=== PATIENT | female | born 1980 | race Caucasian/White ===

== ENCOUNTER 2019-08-27 16:11 | Emergency (ER) | payer OTHER ==
--- OUTSIDE RECORDS SUMMARY | 2019-08-27 16:34 | XMS REPORT | Continuity of Care Document ---
:1980 External Reference #:[id number] Author Name Zoie Karchantellmanohar (transmitted by agent of provider Maribel Jeff) Address [address] [place] [id number] Problems Active Problems Provider Date Malignant neoplasm of uterus Lawrence Johnson MD Onset: 06/15/2019 Note: April 2019 Malignant tumor of cervix Onset: 05/19/2019 Inactive Problems Human papilloma virus infection Onset: 04/28/2019 Inactive: 04/28/2019 Lump of cervix Onset: 04/28/2019 Inactive: 04/28/2019 Burn of hand Onset: 04/28/2019 Inactive: 04/28/2019 Generalized abdominal pain Onset: 04/14/2019 Inactive: 04/14/2019 Abdominal pain Onset: 04/14/2019 Inactive: 04/14/2019 Acute sinusitis Onset: 03/22/2019 Inactive: 03/22/2019 Social History Type Date Description Comments Sex Unknown Allergies, Adverse Reactions, Alerts Active Allergies Reaction Severity Comments Date Augmentin Clavulanate part 06/16/2019 Hormonal Contraception extreme depression 06/16/2019 Medications History Medications SIG Qnty Indications Ordering Date Provider Sulfamethoxazole/Tri take 1 by mouth 14tabs Rhona Whitehead 07/07/2019 - methoprim DS twice daily for 7 MD 06/25/2019 days or as 800-160mg Tablets directed by physician History Medications Nitrofurantoin Monohyd 1 tab by mouth 10caps R35.0 JODEE White 2018 - Macro 2 times daily 06/25/2019 100mg Capsules Zithromax Oral; Take 2 6tabs Unknown 03/22/2019 - 250mg Tablets tablets now 03/27/2019 then take 1 tablet daily for four more days. Take one hour before or two hours after a meal Immunizations CPT Code Status Date Vaccine Lot # [id number] Given 07/20/2019 Flu < 65 years [id number] Given 07/21/2013 Tdap - Boostrix/Adacel 95725 Given 04/21/2000 Hep A Adult for >18 yrs Havrix/Vaqta 91835 Given 10/14/1999 Hep A Adult for >18 yrs Havrix/Vaqta 32304 Given 09/28/1995 Hep B 11-15yr, Recombivax 1.0ml dose only 02067 Given 03/01/1995 Hep B 11-15yr, Recombivax 1.0ml dose only 01166 Given 01/09/1995 Varicella (Chicken Pox) Vaccine 02232 Given 08/24/1994 Hep B 11-15yr, Recombivax 1.0ml dose only 94693 Given 07/19/1989 Polio - Ipol 88222 Given 07/19/1989 MMR Vaccine 11666 Given 08/08/1985 Hib ActiHib/Hiberix 38495 Given 10/02/1983 MMR Vaccine Vital Signs Date Vital Result Comment 07/24/2019 3:08pm BP Systolic 118 mmHg BP Diastolic 68 mmHg Weight 120.00 lb Heart Rate 76 /min Body Temperature 98.2 F O2 % BldC Oximetry 99 % 07/06/2019 2:10pm BP Systolic 100 mmHg BP Diastolic 64 mmHg Weight 120.00 lb Heart Rate 76 /min Body Temperature 97.9 F O2 % BldC Oximetry 96 % Results Test Acquired Date Facility Test Result H/L Range Note CMP 08/21/2019 N2N/CCD Import Albumin QN Serum/Plasma 4.6 Alt - SGPT 36 Calcium Ser/Plasma Mass/Vol 9.7 Carbon Dioxide QN Ser/Plas 26 Chloride Serum/Plasma 98 Creatinine QN Serum MCNC 0.72 Glucose Serum 90 Alkaline Phosphatase QN Ser/PL 44 Potassium QN Ser/PL Mols/Vol 4.3 Protein Total QN Ser/Plas 6.9 Sodium QN Ser/Plasma 136 Ast - Sgot 26 CBC W/Auto Differential 08/18/2019 N2N/CCD Import White Blood Count Ser 2.8 Auto CNT RBC Red Blood Count-Auto 4.1 Hemoglobin Blood 11.4 Hematocrit 36 35-45 MCV (Corpuscular Volume) 87 MCH (Corpuscular Hemoglobin) 28 MCHC (Corpuscular Hemog Conc) 32 RDW 13.7 Platelet Count Blood Auto CNT 176 Fluid Lymphocytes 16.3 Monocytes 7.6 Basophils % 4.3 Absolute Eosinophils 0.1 Absolute Lymphocytes Blood 0.5 Absolute Monocytes 0.2 Absolute Neutrophils Auto CNT 2.0 CBC W/Auto Differential 08/14/2019 N2N/CCD Import Platelet Count Blood 215 Auto CNT Neutrophils 2.2 Fluid Lymphocytes 1.1 Monocytes 0.3 Fluid Body Eosinophils Manual 0.2 Basophils % 0.[address] Basophils BLD Auto CT 0.0 CBC W/Auto Differential 08/14/2019 N2N/CCD Import White Blood Count Ser 3.8 Auto CNT RBC Red Blood Count-Auto 4.3 Hemoglobin Blood 11.9 Hematocrit 37 35-45 MCV (Corpuscular Volume) 87 MCH (Corpuscular Hemoglobin) 28 MCHC (Corpuscular Hemog Conc) 32 RDW 13.9 Platelet Count Blood Auto CNT 215 Urine Culture And 07/24/2019 [facility] Urine Culture SEE RESULT 1, [address] [place] [address] [phone] Urine Culture And 07/06/2019 [facility] Urine Culture SEE RESULT [address] [place] [address] [phone] CFM Urinalysis 07/06/2019 [facility] Urine Specific 1.020 ( )- - [place] Ua PH Test Strip 7.0 Ua Color <pending> Ua Appearance <pending> Ua WBC large Ua Protein 100 Urine Glucose QL negative Urine Ketones QL Test Strip negative Urine Bilirubin TTL QL T-Strip negative Urine Urobilinogen QN TS 0.2 Urine Nitrite QL TS positive Ua Occult Blood moderate Abo/RH 05/30/2019 N2N/CCD Import Abo/RH A RH Pos Antibody 05/30/2019 N2N/CCD Import Antibody negative Screen Screen Hematocrit 05/12/2019 N2N/CCD Import Hematocrit 39 % 35 - 42 % Hemoglobin 05/12/2019 N2N/CCD Import Hemoglobin 12.5 gm/dl INR 05/12/2019 N2N/CCD Import INR 1.0 _ - Lymph# 05/12/2019 N2N/CCD Import Lymph# 1.3 K/cumm 1.0 - 4.9 K/cumm Lymph% 05/12/2019 N2N/CCD Import Lymph% 1.3 % Low 20 - 45 % MCH 05/12/2019 N2N/CCD Import MCH 30 uugm 27 - 31 uugm MCHC 05/12/2019 N2N/CCD Import MCHC 32 gm/dL 32 - 36 gm/dL MCV 05/12/2019 N2N/CCD Import MCV 92 fL 81 - 99 fL Mcintosh# 05/12/2019 N2N/CCD Import Mcintosh# 0.4 10-9/L 0 - 1.1 10-9/L Mcintosh% 05/12/2019 N2N/CCD Import Mcintosh% 0.4 % 0 - 10 % Neut% 05/12/2019 N2N/CCD Import Neut% 3.9 % Low 45 - 70 % Platelets 05/12/2019 N2N/CCD Import Platelets 263 K/cumm 140 - 440 K/cumm PT 05/12/2019 N2N/CCD Import PT 11.4 seconds 10.7 - 12.0 Seconds PTT 05/12/2019 N2N/CCD Import PTT 31.9 _ RBC 05/12/2019 N2N/CCD Import RBC 4.2 M/cumm 4.2 - 5.4 M/cumm RDW 05/12/2019 N2N/CCD Import RDW 13 % 11.5 - 14.5 % WBC 05/12/2019 N2N/CCD Import WBC 5.9 K/cumm 4.8 - 10.8 K/cumm Albumin 05/12/2019 N2N/CCD Import Albumin 4.6 gm/dL Alk Phos 05/12/2019 N2N/CCD Import Alk Phos 39 IU/L Alt 05/12/2019 N2N/CCD Import Alt 44 IU/L Anion Gap 05/12/2019 N2N/CCD Import Anion Gap 11 _ Ast 05/12/2019 N2N/CCD Import Ast 29 IU/L Bilirubin 05/12/2019 N2N/CCD Import Bilirubin 0.2 mg/dL 0.2 - 1.3 Total Total mg/dL BUN 05/12/2019 N2N/CCD Import BUN 13 _ Calcium 05/12/2019 N2N/CCD Import Calcium 9.5 mg/dL Chloride 05/12/2019 N2N/CCD Import Chloride 106 mmol/L 98 - 107 mmol/L Co2 05/12/2019 N2N/CCD Import Co2 25 mmol/L 22 - 31 mmol/L Creatinine 05/12/2019 N2N/CCD Import Creatinine 0.80 mg/dL Eosin% 05/12/2019 N2N/CCD Import Eosin% 0.3 % 0 - 5 % Eosin# 05/12/2019 N2N/CCD Import Eosin# 0.3 K/cumm 0 - .5 K/cumm Baso% 05/12/2019 N2N/CCD Import Baso% 0.0 % 0 - 2 % Baso# 05/12/2019 N2N/CCD Import Baso# 0.0 K/cumm 0 - 0.2 K/cumm Sodium 05/12/2019 N2N/CCD Import Sodium 142 mmol/L 137 - 145 mmol/L GFR Afr Amer 05/12/2019 N2N/CCD Import GFR Afr Amer 109 _ 60 - 150 GFR Non Afr 05/12/2019 N2N/CCD Import GFR Non Afr 95 _ 60 - 150 Amer Amer Glucose 05/12/2019 N2N/CCD Import Glucose 86 mg/dL 60 - 100 MG/DL Protein, Total 05/12/2019 N2N/CCD Import Protein, Total 7.0 gm/dL Potassium 05/12/2019 N2N/CCD Import Potassium 4.9 mmol/L Laboratory 05/04/2019 [facility] Surgical SEE RESULT 4 test finding [address] Pathology [place] [id number] [phone] Protein-Ua 04/14/2019 N2N/CCD Import Protein-Ua Negative Negative Protein, Total 04/14/2019 N2N/CCD Import Protein, Total 6.8 g/dL 6.4- 8.9 g/dL Potassium 04/14/2019 N2N/CCD Import Potassium 3.9 mmol/L 3.5-5.0 mmol/L Platelets 04/14/2019 N2N/CCD Import Platelets 252 10_3/uL 150-450 10 3/uL PH-Ua 04/14/2019 N2N/CCD Import PH-Ua 6.0 _ 5-9 NRBC% 04/14/2019 N2N/CCD Import NRBC% 0.0 _ NRBC# 04/14/2019 N2N/CCD Import NRBC# 0.0 10_3/ul Nitrite-Ua 04/14/2019 N2N/CCD Import Nitrite-Ua Negative Negative Neut% 04/14/2019 N2N/CCD Import Neut% 60.2 % 45 - 70 % Neut# 04/14/2019 N2N/CCD Import Neut# 4.0 10_3/ul 1.5-7.7 10 3/ul MPV 04/14/2019 N2N/CCD Import MPV 7.5 fL 7.4-10.4 fL Mcintosh% 04/14/2019 N2N/CCD Import Mcintosh% 5.1 % 0 - 10 % Mcintosh# 04/14/2019 N2N/CCD Import Mcintosh# 0.3 10_3/ul 0-0.8 10 3/ul MCV 04/14/2019 N2N/CCD Import MCV 89 fL 80-97 fL MCHC 04/14/2019 N2N/CCD Import MCHC 33 g/dL 31-36 g/dL MCH 04/14/2019 N2N/CCD Import MCH 29 pg 27-31 pg RBC 04/14/2019 N2N/CCD Import RBC 4.23 3.70-4.87 10 10_6_/uL 6 /uL RDW 04/14/2019 N2N/CCD Import RDW 13 % 10-15 % Sodium 04/14/2019 N2N/CCD Import Sodium 139 mmol/L 135-145 mmol/L SP Grav-Ua 04/14/2019 N2N/CCD Import SP Grav-Ua 1.029 _ 1.010-1.030 Urobilinogen-U 04/14/2019 N2N/CCD Import Urobilinogen-U Negative Negative a a WBC 04/14/2019 N2N/CCD Import WBC 6.7 10_3/uL 3.5-10.8 10 3/uL Bilirubin-Ua 04/14/2019 N2N/CCD Import Bilirubin-Ua Negative Negative - Negative Qual Blood-Ua 04/14/2019 N2N/CCD Import Blood-Ua Negative Negative - Negative Qual Glucose-Ua 04/14/2019 N2N/CCD Import Glucose-Ua Negative Negative - Negative Qual Ketones-Ua 04/14/2019 N2N/CCD Import Ketones-Ua Negative Negative - Negative Qual Leuk Est-Ua 04/14/2019 N2N/CCD Import Leuk Est-Ua Negative Negative - Negative Qual Nitrite-Ua 04/14/2019 N2N/CCD Import Nitrite-Ua Negative Negative - Negative Qual PH-Ua 04/14/2019 N2N/CCD Import PH-Ua 7.0 _ 5 - 7 Protein-Ua 04/14/2019 N2N/CCD Import Protein-Ua Negative SP Grav-Ua 04/14/2019 N2N/CCD Import SP Grav-Ua 1.015 _ 1.003 - 1.030 Urobilinogen-U 04/14/2019 N2N/CCD Import Urobilinogen-U neg Negative - a a Negative Color-Ua 04/14/2019 N2N/CCD Import Color-Ua Yellow Co2 04/14/2019 N2N/CCD Import Co2 29 mmol/L 22-32 mmol/L Chloride 04/14/2019 N2N/CCD Import Chloride 106 mmol/L 101-111 mmol/L Calcium 04/14/2019 N2N/CCD Import Calcium 9.4 mg/dL 8.6-10.3 mg/dL BUN/Creat 04/14/2019 N2N/CCD Import BUN/Creat 12.2 _ 8-20 Ratio Ratio BUN 04/14/2019 N2N/CCD Import BUN 12 mg/dL 6-24 mg/dL Blood-Ua 04/14/2019 N2N/CCD Import Blood-Ua Negative Negative Bilirubin-Ua 04/14/2019 N2N/CCD Import Bilirubin-Ua Negative Negative Bilirubin 04/14/2019 N2N/CCD Import Bilirubin 0.30 mg/dL 0.2-1.0 Total Total mg/dL Baso% 04/14/2019 N2N/CCD Import Baso% 0.5 % 0 - 2 % Baso# 04/14/2019 N2N/CCD Import Baso# 0.0 10_3/ul 0-0.2 10 3/ul Ast 04/14/2019 N2N/CCD Import Ast 31 U/L 13-39 U/L Appear-Ua 04/14/2019 N2N/CCD Import Appear-Ua Clear Anion Gap 04/14/2019 N2N/CCD Import Anion Gap 4 mmol/L 2-11 mmol/L Alt 04/14/2019 N2N/CCD Import Alt 52 U/L 7-52 U/L Alk Phos 04/14/2019 N2N/CCD Import Alk Phos 38 U/L 34-104 U/L Albumin 04/14/2019 N2N/CCD Import Albumin 4.3 g/dL 3.2-5.2 g/dL A/G Ratio 04/14/2019 N2N/CCD Import A/G Ratio 1.7 _ 1-3 Lymph% 04/14/2019 N2N/CCD Import Lymph% 30.2 % 20 - 45 % Lymph# 04/14/2019 N2N/CCD Import Lymph# 2.0 10_3/ul 1.0-4.8 10 3/ul Lipase 04/14/2019 N2N/CCD Import Lipase 61 U/L 11.0-82.0 U/L Leuk Est-Ua 04/14/2019 N2N/CCD Import Leuk Est-Ua Negative Negative Lactic Acid 04/14/2019 N2N/CCD Import Lactic Acid 0.5 mmol/L 0.5-2.0 mmol/L Ketones-Ua 04/14/2019 N2N/CCD Import Ketones-Ua 1+ Abnormal Negative Hemoglobin 04/14/2019 N2N/CCD Import Hemoglobin 12.4 g/dL 12.0-16.0 g/dL Hematocrit 04/14/2019 N2N/CCD Import Hematocrit 38 % 35-47 % HCG, Serum 04/14/2019 N2N/CCD Import HCG, Serum < 0.60 Quant Quant Glucose-Ua 04/14/2019 N2N/CCD Import Glucose-Ua Negative Negative Glucose 04/14/2019 N2N/CCD Import Glucose 90 mg/dL 70-100 mg/dL Globulin 04/14/2019 N2N/CCD Import Globulin 2.5 g/dL 2-4 g/dL GFR Non Afr 04/14/2019 N2N/CCD Import GFR Non Afr 64.2 _ >60 Amer Amer GFR Afr Amer 04/14/2019 N2N/CCD Import GFR Afr Amer 77.7 _ >60 Eosin% 04/14/2019 N2N/CCD Import Eosin% 4.0 % 0 - 5 % Eosin# 04/14/2019 N2N/CCD Import Eosin# 0.3 10_3/ul 0-0.6 10 3/ul CRP 04/14/2019 N2N/CCD Import CRP 1.77 mg/L <8.01 mg/L Creatinine 04/14/2019 N2N/CCD Import Creatinine 0.98 mg/dL High 0.51- 0.95 mg/dL 1 TC to pt - no growth of any bacteria 2 SEE RESULT BELOW Name: BORIS ORTIZ : [address]: Lawrence Johnson MD Acct: [id number] Unit: [id number] AGE: 39 Location: [facility] Re07/24/19 SEX: F Status: REG REF SPEC: [id number] LEILA: 07/24/[address]: Lawrence Johnson MD REQ: [id number] RECD: 07/24/19 STATUS: COMP _ SOURCE: URINE SPDESC: ORDERED: Urine Culture COMMENTS: [id number] Urine Source: Random Procedure Result Reported Site Urine Culture Final 07/25/19- 1613 ML No growth of clinically significant organisms * [facility] . Patient: BORIS ORTIZ [id number] (Continued) CONTINUED ON NEXT PAGE DEPARTMENT OF PATHOLOGY, [address] [place] [address] Rashawn Gonzalez M.D. Director [facility] # [id number] 3 SEE RESULT BELOW Name: ALBERT ORTIZICA : [address]: Fabiola Davenport NP Acct: [id number] Unit: [id number] AGE: 39 Location: [facility] Re07/06/19 SEX: F Status: REG REF SPEC: [id number] LEILA: 07/06/[address]: Fabiola Davenport NP REQ: [id number] RECD: 07/06/19 STATUS: COMP _ SOURCE: URINE SPDESC: ORDERED: Urine Culture COMMENTS: [id number] Urine Source: Random Procedure Result Reported Site Urine Culture Final 07/08/19- 0909 ML Organism 1 KLEBSIELLA PNEUMONIAE [place] Count >100,000 (Many) CFU/ML 1. KLEBSIELLA PNEUMONIAE [facility] RX --------- ------ Ampicillin R Cefazolin <=4 S Cefepime <=1 S Ceftriaxone <=1 S Ciprofloxacin <=0.25 S Gentamicin <=1 S Levofloxacin <=0.12 S Meropenem <=0.25 S Nitrofurantoin 64 I Tetracycline <=1 S Pipercillin/Tazobactam <=4 S Trimethoprim/Sulfamethoxazole <=20 S Amoxicillin/Clavulanic Acid 4 S Aztreonam <=1 S Contact the Microbiology Department for any additional antibiotic reporting. * - Main Lab . END OF REPORT DEPARTMENT OF PATHOLOGY, [address] [place] [address] Rashawn Gonzalez M.D. Director [facility] # [id number] 4 SEE RESULT BELOW Name: BORIS ORTIZ : [address]: Ryan Grey MD Acct: [id number] Unit: [id number] AGE: 38 Location: [facility] Re05/04/19 SEX: F Status: REG REF SPEC: [id number] LEILA: 05/04/19-10[address] [facility] [address]: Ryan Grey MD REQ: [id number] RECD: 05/04/19-3379 STATUS: BREE PARKINSON DR: Hallie Knight MD _ ORDERED: LEVEL 4 COMMENTS: [id number] FINAL DIAGNOSIS Uterus, cervix, biopsy: -- Invasive, poorly differentiated squamous cell carcinoma. See comment. Comment: The biopsy fragments demonstrates extensive areas of invasive poorly differentiated squamous cell carcinoma with superficial areas likely representing high-grade dysplasia. Due to the fragmentation of the specimen the extent of tumor and depth of invasion cannot be ascertained. No definitive vascular invasion is noted. Dr. Grey notified of these results on 05/08/2019 at approximately 10 AM. PRE-OPERATIVE DIAGNOSIS Moderate cervical dysplasia GROSS DESCRIPTION The specimen is received in formalin labeled, Cervical Biopsy, and consists of a 1.3 x 1.0 x 0.4 cm aggregate of proctor-brown irregular soft tissue fragments admixed with scant red-brown blood clot. Entirely submitted, one cassette. Signed by and Reported on: Rashawn Gonzalez MD 0942 END OF REPORT DEPARTMENT OF PATHOLOGY, [address] [place] [address] Rashawn Gonzalez M.D. Director [facility] # [id number] Procedures Description No Information Available Medical Devices Description No Information Available Encounters Type Date Location Provider Dx Diagnosis Office Visit 07/24/2019 3:00p [facility] Raul Johnson MD J04.0 Acute laryngitis C53.9 Malignant neoplasm of cervix uteri, unspecified Office Visit 07/06/2019 2:00p [facility] VIRGILIO NajeraP R35.0 Frequency of micturition N39.0 Urinary tract infection, site not specified Office Visit 06/21/2019 9:45a [facility] Main Zoie Karnow, C53.9 Malignant neoplasm DO of cervix uteri, unspecified K59.00 Constipation, unspecified L76.32 Postproc hematoma of skin, subcu following other procedure Assessments Date Code Description Provider 07/24/2019 J04.0 Acute laryngitis Lawrence Johnson MD 07/24/2019 C53.9 Malignant neoplasm of cervix uteri, Lawrence Johnson MD unspecified 07/20/2019 Z23 Encounter for immunization Nurse 07/06/2019 R35.0 Frequency of micturition Fabiola Davenport [facility] 07/06/2019 N39.0 Urinary tract infection, site not specified Fabiola Davenport [facility] 06/21/2019 C53.9 Malignant neoplasm of cervix uteri, Zoie Jerezchantellw, DO unspecified 06/21/2019 K59.00 Constipation, unspecified Zoie Karnow, DO 06/21/2019 L76.32 Postprocedural hematoma of skin and Zoie Karnow, DO subcutaneous tissue following other procedure Plan of Treatment No Information Available Functional Status Description No Information Available Mental Status Description No Information Available Referrals Description No Information Available
--- OUTSIDE RECORDS SUMMARY | 2019-08-27 16:34 | XMS REPORT | Continuity of Care Document ---
:1980 External Reference #:[id number] Author Name Bubba Johnson MD Address [address] [place] [address] Problems Active Problems Provider Date Malignant neoplasm of uterus Bubba Johnson MD Onset: 06/15/2019 Note: April 2019 [...] Provider Sulfamethoxazole/Tri take 1 by mouth 14tabs Cristal Whitehead, 07/07/2019 - methoprim DS twice daily for [...] CPT Code Status Date Vaccine Lot # [id number] Given 07/20/2019 Flu < 65 years [id number] 93556 Given 07/21/2013 Tdap - Boostrix/Adacel 60769 Given 04/21/2000 Hep A Adult for >18 yrs Havrix/Vaqta 34922 Given 10/14/1999 Hep A Adult for >18 yrs Havrix/Vaqta 06686 Given 09/28/1995 Hep B 11-15yr, Recombivax 1.0ml dose only 99944 Given 03/01/1995 Hep B 11-15yr, Recombivax 1.0ml dose only 03372 Given 01/09/1995 Varicella (Chicken Pox) Vaccine 39932 Given 08/24/1994 Hep B 11-15yr, Recombivax 1.0ml dose only 08123 Given 07/19/1989 Polio - Ipol 83689 Given 07/19/1989 MMR Vaccine 10739 Given 08/08/1985 Hib ActiHib/Hiberix 95225 Given 10/02/1983 MMR Vaccine Vital Signs Date [...] % BldC Oximetry 96 % Results Test Date Facility Test Result H/L Range Note Urine Culture And 07/24/2019 [facility] Urine Culture SEE RESULT 1, [address] [place] [address] [phone] Urine Culture And 07/06/2019 [facility] Urine Culture SEE RESULT [address] [place] [address] [phone] CFM Urinalysis 07/06/2019 [facility] Urine Specific 1.020 ( )- - [place] Ua PH Test Strip 7.0 Ua Color <pending> Ua Appearance <pending> Ua WBC large Ua Protein 100 Urine Glucose QL negative Urine Ketones QL Test Strip negative Urine Bilirubin TTL QL T-Strip negative Urine Urobilinogen QN TS 0.2 Urine Nitrite QL TS positive Ua Occult Blood moderate Abo/RH 05/30/2019 N2N/CCD Import Abo/RH A RH Pos Antibody 05/30/2019 N2N/CCD Import Antibody negative Screen Screen Eosin# 05/12/2019 N2N/CCD Import Eosin# 0.3 K/cumm 0 - .5 K/cumm Eosin% 05/12/2019 N2N/CCD Import Eosin% 0.3 % 0 - 5 % Hematocrit 05/12/2019 N2N/CCD Import Hematocrit 39 % [...] MCV 92 fL 81 - 99 fL [place]# 05/12/2019 N2N/CCD Import [place]# 0.4 10-9/L 0 - 1.1 10-9/L [place]% 05/12/2019 N2N/CCD Import [place]% 0.4 % 0 - 10 % Neut% [...] Chloride 106 mmol/L 98 - 107 mmol/L Baso% 05/12/2019 N2N/CCD Import Baso% 0.0 % 0 - 2 % Baso# 05/12/2019 N2N/CCD Import Baso# 0.0 K/cumm 0 - 0.2 K/cumm Sodium 05/12/2019 N2N/CCD Import Sodium 142 mmol/L 137 - 145 mmol/L Protein, Total 05/12/2019 N2N/CCD Import Protein, Total 7.0 gm/dL Potassium 05/12/2019 N2N/CCD Import Potassium 4.9 mmol/L Glucose 05/12/2019 N2N/CCD Import Glucose 86 mg/dL 60 - 100 MG/DL GFR Non Afr 05/12/2019 N2N/CCD Import GFR Non Afr 95 _ 60 - 150 Amer Amer GFR Afr Amer 05/12/2019 N2N/CCD Import GFR Afr Amer 109 _ 60 - 150 Creatinine 05/12/2019 N2N/CCD Import Creatinine 0.80 mg/dL Co2 05/12/2019 N2N/CCD Import Co2 25 mmol/L 22 - 31 mmol/L Laboratory 05/04/2019 [facility] Surgical SEE RESULT 4 test finding [address] Pathology [address] [place], [place] [address] [phone] Protein, Total 04/14/2019 N2N/CCD Import Protein, Total [...] N2N/CCD Import MPV 7.5 fL 7.4-10.4 fL [place]% 04/14/2019 N2N/CCD Import [place]% 5.1 % 0 - 10 % [place]# 04/14/2019 N2N/CCD Import [place]# 0.3 10_3/ul 0-0.8 10 3/ul MCV 04/14/2019 N2N/CCD Import MCV 89 fL 80-97 fL MCHC 04/14/2019 N2N/CCD Import MCHC 33 g/dL 31-36 g/dL MCH 04/14/2019 N2N/CCD Import MCH 29 pg 27-31 pg Lymph% 04/14/2019 N2N/CCD Import Lymph% 30.2 % 20 - 45 % Lymph# 04/14/2019 N2N/CCD Import Lymph# 2.0 10_3/ul 1.0-4.8 10 3/ul Urobilinogen-U 04/14/2019 N2N/CCD Import Urobilinogen-U neg Negative - a a Negative SP Grav-Ua 04/14/2019 N2N/CCD Import SP Grav-Ua 1.015 _ 1.003 - 1.030 Protein-Ua 04/14/2019 N2N/CCD Import Protein-Ua Negative PH-Ua 04/14/2019 N2N/CCD Import PH-Ua 7.0 _ 5 - 7 Nitrite-Ua 04/14/2019 N2N/CCD Import Nitrite-Ua Negative Negative - Negative Qual Leuk Est-Ua 04/14/2019 N2N/CCD Import Leuk Est-Ua Negative Negative - Negative Qual Ketones-Ua 04/14/2019 N2N/CCD Import Ketones-Ua Negative Negative - Negative Qual Glucose-Ua 04/14/2019 N2N/CCD Import Glucose-Ua Negative Negative - Negative Qual Blood-Ua 04/14/2019 N2N/CCD Import Blood-Ua Negative Negative - Negative Qual Bilirubin-Ua 04/14/2019 N2N/CCD Import Bilirubin-Ua Negative Negative - Negative Qual WBC 04/14/2019 N2N/CCD Import WBC 6.7 10_3/uL 3.5-10.8 10 3/uL Urobilinogen-U 04/14/2019 N2N/CCD Import Urobilinogen-U Negative Negative a a SP Grav-Ua 04/14/2019 N2N/CCD Import SP Grav-Ua 1.029 _ 1.010-1.030 Sodium 04/14/2019 N2N/CCD Import Sodium 139 mmol/L 135-145 mmol/L RDW 04/14/2019 N2N/CCD Import RDW 13 % 10-15 % RBC 04/14/2019 N2N/CCD Import RBC 4.23 3.70-4.87 10 10_6_/uL 6 /uL Protein-Ua 04/14/2019 N2N/CCD Import Protein-Ua Negative Negative Co2 04/14/2019 N2N/CCD Import Co2 29 mmol/L [...] N2N/CCD Import A/G Ratio 1.7 _ 1-3 Lipase 04/14/2019 N2N/CCD Import Lipase 61 U/L [...] Creatinine 0.98 mg/dL High 0.51- 0.95 mg/dL Color-Ua 04/14/2019 N2N/CCD Import Color-Ua Yellow 1 TC to pt - no growth of any bacteria 2 SEE RESULT BELOW Name: UVALDO ORTIZ : [address]: Lawrence Johnson MD Acct: [id number] Unit: [id number] AGE: 39 Location: [facility] Re07/24/19 SEX: F Status: REG REF SPEC: [id number] LEILA: 07/24/[address] [facility] [address]: Lawrence Johnson MD REQ: [id number] RECD: 07/24/19 STATUS: COMP _ SOURCE: URINE SPDESC: ORDERED: Urine Culture COMMENTS: [id number] Urine Source: Random Procedure Result Reported Site Urine Culture Final 07/25/19- 1613 ML No growth of clinically significant organisms * ML - Main Lab . Patient: UVALDO ORTIZ [id number] (Continued) CONTINUED ON NEXT PAGE DEPARTMENT OF PATHOLOGY, [address] [place] [address] Rashawn Gonzalez M.D. Director [facility] # [id number] 3 SEE RESULT BELOW Name: UVALDO ORTIZ : [address]: Fabiola Davenport NP Acct: [id number] Unit: [id number] AGE: 39 Location: [facility] Re07/06/19 SEX: F Status: REG REF SPEC: [id number] LEILA: 07/06/19-[address]: Fabiola Davenport NP REQ: [id number] RECD: 07/06/19 STATUS: COMP _ SOURCE: URINE SPDESC: ORDERED: Urine Culture COMMENTS: [id number] Urine Source: Random Procedure Result Reported Site Urine Culture Final 07/08/19- 908 ML Organism 1 KLEBSIELLA PNEUMONIAE [place] Count >100,000 (Many) CFU/ML 1. KLEBSIELLA PNEUMONIAE [facility].I.[facility]. RX --------- ------ Ampicillin R Cefazolin <=4 S Cefepime <=1 S Ceftriaxone <=1 S Ciprofloxacin <=0.25 S Gentamicin <=1 S Levofloxacin <=0.12 S Meropenem <=0.25 S Nitrofurantoin 64 I Tetracycline <=1 S Pipercillin/Tazobactam <=4 S Trimethoprim/Sulfamethoxazole <=20 S Amoxicillin/Clavulanic Acid 4 S Aztreonam <=1 S Contact the Microbiology Department for any additional antibiotic reporting. * ML - Main Lab . END OF REPORT DEPARTMENT OF PATHOLOGY, [address] [place] [address] Rashawn Gonzalez M.D. Director [facility] # [id number] 4 SEE RESULT BELOW Name: ANGELUVALDO : [address]: Ryan Grey MD Acct: [id number] Unit: [id number] AGE: 38 Location: [facility] Re05/04/19 SEX: F Status: REG REF SPEC: [id number] LEILA: 05/04/19-[address] [facility] [address]: Ryan Grey MD REQ: [id number] RECD: 05/04/195623 STATUS: BREE PARKINSON DR: Hallie Knight MD _ ORDERED: LEVEL 4 COMMENTS: [id number] FINAL DIAGNOSIS Uterus, cervix, biopsy: -- Invasive, [...] 0942 END OF REPORT DEPARTMENT OF PATHOLOGY, [address] [place] [address] Rashawn Gonzalez M.D. Director [facility] # [id number] Procedures Description No Information Available Medical Devices Description No Information Available Encounters Type Date Location Provider Dx Diagnosis Office Visit 07/24/2019 3:00p CFM Main Bubba Johnson MD J04.0 Acute laryngitis C53.9 Malignant neoplasm of cervix uteri, unspecified Office Visit 07/06/2019 2:00p CFM Main Fabiola Juan Josetama, B2B ACCOUNT EXECUTIVE R35.0 Frequency of micturition N39.0 Urinary tract infection, site not specified Office Visit 06/21/2019 9:45a CFM Main Zoie Solitarionow, C53.9 Malignant neoplasm DO of cervix uteri, unspecified K59.00 Constipation, unspecified L76.32 Postproc hematoma of skin, subcu following other procedure Assessments Date Code Description Provider 07/24/2019 J04.0 Acute laryngitis Bubba Johnson MD 07/24/2019 C53.9 Malignant neoplasm of cervix uteri, Bubba Johnson MD unspecified 07/06/2019 R35.0 Frequency of micturition Fabiola Aittama, B2B ACCOUNT EXECUTIVE 07/06/2019 N39.0 Urinary tract infection, site not specified Fabiola Aittama, B2B ACCOUNT EXECUTIVE 06/21/2019 C53.9 Malignant neoplasm of cervix uteri, Zoie Karnow, DO unspecified 06/21/2019 K59.00 Constipation, unspecified Zoie Karnow, DO 06/21/2019 L76.32 Postprocedural hematoma of skin and Zoie Karnow, DO subcutaneous tissue following other procedure Plan of Treatment No Information Available Functional Status Description No Information Available Mental Status Description No Information Available Referrals Description No Information Available
--- OUTSIDE RECORDS SUMMARY | 2019-08-27 16:34 | XMS REPORT | Continuity of Care Document ---
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 Fabiola Aittama, 07/06/2019 - 100mg Capsules mouth 2 times 0 ELEVATOR TROUBLESHOOTER 06/25/2019 daily Zithromax Oral; Take 2 6tabs Unknown 03/22/2019 - 250mg Tablets tablets now 03/27/2019 then take 1 tablet daily for four more days. Take one hour before or two hours after a meal Immunizations CPT Code Status Date Vaccine Lot # [id number] Given 07/20/2019 Flu < 65 years [id number] 46788 Given 07/21/2013 Tdap - Boostrix/Adacel 99768 Given 04/21/2000 Hep A Adult for >18 yrs Havrix/Vaqta 38313 Given 10/14/1999 Hep A Adult for >18 yrs Havrix/Vaqta 62831 Given 09/28/1995 Hep B 11-15yr, Recombivax 1.0ml dose only 80708 Given 03/01/1995 Hep B 11-15yr, Recombivax 1.0ml dose only 99538 Given 01/09/1995 Varicella (Chicken Pox) Vaccine 83836 Given 08/24/1994 Hep B 11-15yr, Recombivax 1.0ml dose only 56930 Given 07/19/1989 Polio - Ipol 69189 Given 07/19/1989 MMR Vaccine 56515 Given 08/08/1985 Hib ActiHib/Hiberix 56595 Given 10/02/1983 MMR Vaccine Vital Signs Date Vital Result Comment 08/25/2019 4:16pm BP Systolic 118 mmHg BP Diastolic 80 mmHg Weight 122.00 lb Heart Rate 69 /min Body Temperature 99.1 F O2 % BldC Oximetry 99 % 07/24/2019 3:08pm BP Systolic 118 mmHg BP Diastolic 68 mmHg Weight 120.00 lb Heart Rate 76 /min Body Temperature 98.2 F O2 % BldC Oximetry 99 % Results Test Acquired Date Facility Test Result H/L Range Note CFM Rapid Flu 08/25/2019 [facility] Influenza A Rapid Neg A & B ( )- - Test Influenza B Rapid Test Neg CMP 08/21/2019 N2N/CCD Import Albumin QN Serum/Plasma 4.6 Alt - SGPT 36 Calcium Ser/Plasma Mass/Vol 9.7 Carbon Dioxide QN Ser/Plas 26 Chloride Serum/Plasma 98 Creatinine QN Serum MCNC 0.72 Glucose Serum 90 Alkaline Phosphatase QN Ser/PL 44 Potassium QN Ser/PL Mols/Vol 4.3 Protein Total QN Ser/Plas 6.9 Sodium QN Ser/Plasma 136 Ast - Sgot 26 CMP 08/18/2019 N2N/CCD Import Albumin QN Serum/Plasma 4.1 Alt - SGPT 35 Calcium Ser/Plasma Mass/Vol 9.2 Carbon Dioxide QN Ser/Plas 28 Chloride Serum/Plasma 102 Creatinine QN Serum MCNC 0.96 Glucose Serum 82 Alkaline Phosphatase QN Ser/PL 34 Potassium QN Ser/PL Mols/Vol 4.6 Protein Total QN Ser/Plas 6.4 Sodium QN Ser/Plasma 140 Ast - Sgot 20 BUN - Urea Nitrogen Ser/Plas 15 CBC W/Auto Differential 08/18/2019 N2N/CCD Import White [...] CNT 215 Urine Culture And 07/24/2019 [facility] Urine Culture SEE RESULT 1, [address] [place] [address] [phone] Urine Culture And 07/06/2019 [facility] Urine Culture SEE RESULT [address] [place] [address] [phone] CFM Urinalysis 07/06/2019 [facility] Urine Specific 1.020 ( )- - [place] Ua PH Test Strip 7.0 Ua Color [...] MCV 92 fL 81 - 99 fL [place]# 05/12/2019 N2N/CCD Import [place]# 0.4 10-9/L 0 - 1.1 10-9/L [place]% 05/12/2019 N2N/CCD Import [place]% 0.4 % 0 - 10 % Neut% [...] Import Potassium 4.9 mmol/L Laboratory 05/04/2019 [facility] Surgical SEE RESULT 4 test finding [address] [place] [address] [phone] Protein-Ua 04/14/2019 N2N/CCD Import Protein-Ua Negative Negative [...] N2N/CCD Import MPV 7.5 fL 7.4-10.4 fL [place]% 04/14/2019 N2N/CCD Import [place]% 5.1 % 0 - 10 % [place]# 04/14/2019 N2N/CCD Import [place]# 0.3 10_3/ul 0-0.8 10 3/ul MCV 04/14/2019 [...] bacteria 2 SEE RESULT BELOW Name: UVALDO OTRIZ : [address]: Lawrence Johnson MD Acct: [id number] Unit: [id number] AGE: 39 Location: [facility] Re07/24/19 SEX: F Status: REG REF SPEC: [id number] LEILA: 07/24/19-[address] [facility] [address]: Lawrence Johnson MD REQ: [id number] RECD: 07/24/19 STATUS: COMP _ SOURCE: URINE SPDESC: ORDERED: Urine Culture COMMENTS: [id number] Urine Source: Random Procedure Result Reported Site Urine Culture Final 07/25/19- 1613 ML No growth of clinically significant organisms * ML - Main Lab . Patient: UVALDO ORTIZ [id number] (Continued) CONTINUED ON NEXT PAGE DEPARTMENT OF PATHOLOGY, [address] [place] [address] Rashawn Gonzalez M.D. Director [facility] # [id number] 3 SEE RESULT BELOW Name: UVALDO ORTIZ : [address]: Fabiola Davenport NP Acct: [id number] Unit: [id number] AGE: 39 Location: [facility] Re07/06/19 SEX: F Status: REG REF SPEC: [id number] LEILA: 07/06/19-[address]: Fabiola Davenport NP REQ: [id number] RECD: 07/06/19 STATUS: COMP _ SOURCE: URINE SPDESC: ORDERED: Urine Culture COMMENTS: [id number] Urine Source: Random Procedure Result Reported Site Urine Culture Final 07/08/19- 908 ML Organism 1 KLEBSIELLA PNEUMONIAE [place] Count >100,000 (Many) CFU/ML 1. KLEBSIELLA PNEUMONIAE [...] . END OF REPORT DEPARTMENT OF PATHOLOGY, [address] [place] [address] Rashawn Gonzalez M.D. Director [facility] # [id number] 4 SEE RESULT BELOW Name: ALBERT ORTIZICA : [address]: Ryan Grey MD Acct: [id number] Unit: [id number] AGE: 38 Location: [facility] Re05/04/19 SEX: F Status: REG REF SPEC: [id number] LEILA: 05/04/19-[address] [facility] [address]: Ryan Grey MD REQ: [id number] RECD: 05/04/19 STATUS: BREE PARKINSON DR: Hallie Knight MD _ ORDERED: LEVEL 4 COMMENTS: [id number] FINAL DIAGNOSIS Uterus, cervix, biopsy: -- Invasive, [...] 0942 END OF REPORT DEPARTMENT OF PATHOLOGY, [address] [place] [address] Rashawn Gonzalez M.D. Director [facility] # [id number] Procedures Description No Information Available Medical Devices Description No Information Available Encounters Type Date Location Provider Dx Diagnosis Office Visit 07/24/2019 3:00p CFM Main Lawrence Johnson MD J04.0 Acute laryngitis C53.9 Malignant neoplasm of cervix uteri, unspecified Office Visit 07/06/2019 2:00p CFM Main Fabiola Davenport, ELEVATOR TROUBLESHOOTER R35.0 Frequency of micturition N39.0 Urinary tract infection, site not specified Office Visit 06/21/2019 9:45a CFM Main Zoie Georgew, C53.9 Malignant neoplasm DO of cervix uteri, unspecified K59.00 Constipation, unspecified L76.32 Postproc hematoma of skin, subcu following other procedure Assessments Date Code Description Provider 08/25/2019 R50.9 Fever, unspecified Lawrence Johnson MD 07/24/2019 J04.0 Acute laryngitis Lawrence Johnson MD 07/24/2019 C53.9 Malignant neoplasm of cervix uteri, Lawrence Johnson MD unspecified 07/20/2019 Z23 Encounter for immunization Nurse 07/06/2019 R35.0 Frequency of micturition Fabiola Davenport, ELEVATOR TROUBLESHOOTER 07/06/2019 N39.0 Urinary tract infection, site not specified Fabiola Davenport, ELEVATOR TROUBLESHOOTER 06/21/2019 C53.9 Malignant neoplasm of cervix uteri, Zoie Karnow, DO unspecified 06/21/2019 K59.00 Constipation, unspecified Zoie Karnow, DO 06/21/2019 L76.32 Postprocedural hematoma of skin and Zoie Karnow, DO subcutaneous tissue following other procedure Plan of Treatment 08/25/2019 - Lawrence Johnson MDR50.9 Fever, unspecifiedAllNew Medication: Dronabinol 5 mg - 1-2 capules Q4 hr prn nausea from chemotherapy Functional Status Description No Information Available Mental Status Description No Information Available Referrals Description No Information Available
--- OUTSIDE RECORDS SUMMARY | 2019-08-27 16:34 | XMS REPORT | Continuity of Care Document ---
:1980 External Reference #:[id number] Author Name Zoie Karchantellmanohar (transmitted by agent of provider Maribel Jeff) Address [address] [place] [phone] Problems Active Problems Provider Date Malignant neoplasm [...] CPT Code Status Date Vaccine Lot # 32491 Given 07/20/2019 Flu < 65 years [id number] 86615 Given 07/21/2013 Tdap - Boostrix/Adacel 85846 Given 04/21/2000 Hep A Adult for >18 yrs Havrix/Vaqta 34626 Given 10/14/1999 Hep A Adult for >18 yrs Havrix/Vaqta 35009 Given 09/28/1995 Hep B 11-15yr, Recombivax 1.0ml dose only 65800 Given 03/01/1995 Hep B 11-15yr, Recombivax 1.0ml dose only 04092 Given 01/09/1995 Varicella (Chicken Pox) Vaccine 58413 Given 08/24/1994 Hep B 11-15yr, Recombivax 1.0ml dose only 16799 Given 07/19/1989 Polio - Ipol 05024 Given 07/19/1989 MMR Vaccine 59940 Given 08/08/1985 Hib ActiHib/Hiberix 73452 Given 10/02/1983 MMR Vaccine Vital Signs Date [...] Monocytes 0.2 Absolute Neutrophils Auto CNT 2.0 CMP 08/18/2019 N2N/CCD Import Albumin QN Serum/Plasma [...] Urea Nitrogen Ser/Plas 15 CBC W/Auto Differential 08/14/2019 N2N/CCD Import Platelet [...] Auto CNT 215 Urine Culture And 07/24/[address] [facility] Urine Culture SEE RESULT 1, [address] [place] [address] [phone] Urine Culture And 07/06/[address] [facility] Urine Culture SEE RESULT [address] [place] [address] [phone] CFM Urinalysis 07/06/2019 [facility] Urine Specific 1.020 ( )- - [place] Ua PH Test Strip 7.0 Ua Color [...] MCV 92 fL 81 - 99 fL [place]# 05/12/2019 N2N/CCD Import [place]# 0.4 10-9/L 0 - 1.1 10-9/L [place]% 05/12/2019 N2N/CCD Import [place]% 0.4 % 0 - 10 % Neut% [...] N2N/CCD Import Potassium 4.9 mmol/L Laboratory 05/04/[address] [facility] Surgical SEE RESULT 4 test finding [address] [place] [address] [phone] Protein-Ua 04/14/2019 N2N/CCD Import Protein-Ua Negative Negative [...] N2N/CCD Import MPV 7.5 fL 7.4-10.4 fL [place]% 04/14/2019 N2N/CCD Import [place]% 5.1 % 0 - 10 % [place]# 04/14/2019 N2N/CCD Import [place]# 0.3 10_3/ul 0-0.8 10 3/ul MCV 04/14/2019 [...] [address]: Lawrence Johnson MD Acct: [id number] Unit: [id number] AGE: 39 Location: [facility] Re07/24/19 SEX: F Status: REG REF SPEC: [id number] LEILA: 07/24/[address] [facility] [address]: Lawrence Johnson MD REQ: [id number] RECD: 07/24/19 STATUS: COMP _ SOURCE: URINE SPDESC: ORDERED: Urine Culture COMMENTS: [id number] Urine Source: Random Procedure Result Reported Site Urine Culture Final 07/25/19- 1613 ML No growth of clinically significant organisms * ML - Main Lab . Patient: BORIS ORTIZ [id number] (Continued) CONTINUED ON NEXT PAGE DEPARTMENT OF PATHOLOGY, [address] [place] [address] Rashawn Gonzalez M.D. Director [facility] # [id number] 3 SEE RESULT BELOW Name: BORIS ORTIZ : [address]: Fabiola aDvenport NP Acct: [id number] Unit: [id number] AGE: 39 Location: [facility] Re07/06/19 SEX: F Status: REG REF SPEC: [id number] LEILA: 07/06/19-[address]: Fabiola Davenport NP REQ: [id number] RECD: 07/06/19 STATUS: COMP _ SOURCE: URINE SPDESC: ORDERED: Urine Culture COMMENTS: [id number] Urine Source: Random Procedure Result Reported Site Urine Culture Final 07/08/19- 09 ML Organism 1 KLEBSIELLA PNEUMONIAE [place] Count >100,000 (Many) CFU/ML 1. KLEBSIELLA PNEUMONIAE [...] for any additional antibiotic reporting. * - [facility] Lab . END OF REPORT DEPARTMENT OF PATHOLOGY, [address] [place] [place] [address] Rashawn Gonzalez M.D. Director [facility] # [id number] 4 SEE RESULT BELOW Name: ALBERT ORTIZICA : [address]: Ryan Grey MD Acct: [id number] Unit: [id number] AGE: 38 Location: [facility] Re05/04/19 SEX: F Status: REG REF SPEC: [id number] LEILA: 05/04/19-[address] [facility] [address]: Ryan Grey MD REQ: [id number] RECD: 05/04/19 STATUS: BREE PARKINSON DR: Hallie Knight MD _ ORDERED: LEVEL 4 COMMENTS: [id number] FINAL DIAGNOSIS Uterus, cervix, biopsy: -- Invasive, [...] 0942 END OF REPORT DEPARTMENT OF PATHOLOGY, [address] [place] [address] Rashawn Gonzalez M.D. Director [facility] # [id number] Procedures Description No Information Available Medical Devices Description No Information Available Encounters Type Date Location Provider Dx Diagnosis Office Visit 07/24/2019 3:00p CFM Main Lawrence Johnson MD J04.0 Acute laryngitis C53.9 Malignant neoplasm of cervix uteri, unspecified Office Visit 07/06/2019 2:00p CFM Main Fabiola Juan Josevictorina, CHEMICAL CELL CHANGER R35.0 Frequency of micturition N39.0 Urinary tract [...] 07/06/2019 R35.0 Frequency of micturition Fabiola Davenport, CHEMICAL CELL CHANGER 07/06/2019 N39.0 Urinary tract infection, site not specified Fabiola Davenport, CHEMICAL CELL CHANGER 06/21/2019 C53.9 Malignant neoplasm of cervix uteri, Zoie Karnow, DO unspecified 06/21/2019 K59.00 Constipation, unspecified Zoie Karnow, DO 06/21/2019 L76.32 Postprocedural hematoma of skin and Zoie Karnow, DO subcutaneous tissue following other procedure Plan of Treatment No Information Available Functional Status Description No Information Available Mental Status Description No Information Available Referrals Description No Information Available
--- OUTSIDE RECORDS SUMMARY | 2019-08-27 16:34 | XMS REPORT | Continuity of Care Document ---
:1980 External Reference #:[id number] Author Name Bubba Johnson MD Address [address] [place] [address] Problems Active Problems Provider Date Malignant neoplasm [...] CPT Code Status Date Vaccine Lot # [id number] Given 07/20/2019 Flu < 65 years [id number] 07436 Given 07/21/2013 Tdap - Boostrix/Adacel 89212 Given 04/21/2000 Hep A Adult for >18 yrs Havrix/Vaqta 77141 Given 10/14/1999 Hep A Adult for >18 yrs Havrix/Vaqta 22617 Given 09/28/1995 Hep B 11-15yr, Recombivax 1.0ml dose only 47499 Given 03/01/1995 Hep B 11-15yr, Recombivax 1.0ml dose only 07156 Given 01/09/1995 Varicella (Chicken Pox) Vaccine 41795 Given 08/24/1994 Hep B 11-15yr, Recombivax 1.0ml dose only 68129 Given 07/19/1989 Polio - Ipol 71565 Given 07/19/1989 MMR Vaccine 99675 Given 08/08/1985 Hib ActiHib/Hiberix 16882 Given 10/02/1983 MMR Vaccine Vital Signs Date [...] Result H/L Range Note Urine Culture And 07/06/2019 [facility] Urine Culture SEE RESULT [address] [place], [place] [id number] [phone] CFM Urinalysis 07/06/2019 [facility] Urine Specific 1.020 ( )- - [place] Ua PH Test Strip 7.0 Ua Color [...] MCV 92 fL 81 - 99 fL Gordon# 05/12/2019 N2N/CCD Import Gordon# 0.4 10-9/L 0 - 1.1 10-9/L Gordon% 05/12/2019 N2N/CCD Import Gordon% 0.4 % 0 - 10 % Neut% [...] mmol/L 22 - 31 mmol/L Laboratory 05/04/2019 [facility] Surgical SEE RESULT 2 test finding [address] [place] [address] [phone] Protein, Total 04/14/2019 N2N/CCD Import Protein, Total [...] N2N/CCD Import MPV 7.5 fL 7.4-10.4 fL Gordon% 04/14/2019 N2N/CCD Import Gordon% 5.1 % 0 - 10 % Gordon# 04/14/2019 N2N/CCD Import Gordon# 0.3 10_3/ul 0-0.8 10 3/ul MCV 04/14/2019 [...] Color-Ua 04/14/2019 N2N/CCD Import Color-Ua Yellow 1 SEE RESULT BELOW Name: UVALDO ORTIZ : [address]: Fabiola Davenport NP Acct: [id number] Unit: [id number] AGE: 39 Location: [facility] Re07/06/19 SEX: F Status: REG REF SPEC: [id number] LEILA: 07/06/19-[address]: Fabiola Davenport NP REQ: [id number] RECD: 07/06/19 STATUS: COMP _ SOURCE: URINE SPDESC: ORDERED: Urine Culture COMMENTS: [id number] Urine Source: Random Procedure Result Reported Site Urine Culture Final 07/08/19- 0909 ML Organism 1 KLEBSIELLA PNEUMONIAE [place] Count >100,000 (Many) CFU/ML 1. KLEBSIELLA PNEUMONIAE [...] . END OF REPORT DEPARTMENT OF PATHOLOGY, [address] [place] [address] Rashawn Gonzalez M.D. Director [facility] # [id number] 2 SEE RESULT BELOW Name: UVALDO ORTIZ : [address]: Ryan Grey MD Acct: [id number] Unit: [id number] AGE: 38 Location: [facility] Re05/04/19 SEX: F Status: REG REF SPEC: [id number] LEILA: 05/04/19-[address] [facility] [address]: Ryan Grey MD REQ: [id number] RECD: 05/04/198782 STATUS: BREE PARKINSON DR: Hallie Knight MD _ ORDERED: LEVEL 4 COMMENTS: [id number] FINAL DIAGNOSIS Uterus, cervix, biopsy: -- Invasive, [...] 0942 END OF REPORT DEPARTMENT OF PATHOLOGY, [address] [place] [address] Rashawn Gonzalez M.D. Director [facility] # [id number] Procedures Description No Information Available Medical Devices Description No Information Available Encounters Type Date Location Provider Dx Diagnosis Office Visit 07/24/2019 3:00p CFM Main Bubba Johnson MD J04.0 Acute laryngitis C53.9 Malignant neoplasm of cervix uteri, unspecified Office Visit 07/06/2019 2:00p CFM Main Fabiola Davenport, CERTIFIED MARINE MECHANIC R35.0 Frequency of micturition N39.0 Urinary tract [...] unspecified 07/06/2019 R35.0 Frequency of micturition Fabiola Davenport, CERTIFIED MARINE MECHANIC 07/06/2019 N39.0 Urinary tract infection, site not specified Fabiola Juan Josetama, CERTIFIED MARINE MECHANIC 06/21/2019 C53.9 Malignant neoplasm of cervix uteri, Zoie Karnow, DO unspecified 06/21/2019 K59.00 Constipation, unspecified Zoie Karnow, DO 06/21/2019 L76.32 Postprocedural hematoma of skin and Zoie Karnow, DO subcutaneous tissue following other procedure Plan of Treatment No Information Available Functional Status Description No Information Available Mental Status Description No Information Available Referrals Description No Information Available
--- OUTSIDE RECORDS SUMMARY | 2019-08-27 16:34 | XMS REPORT | Continuity of Care Document ---
:1980 External Reference #:[id number] Author Name Lawrence Johnson MD Address [address] [place] [address] Problems Active Problems Provider Date Malignant neoplasm [...] 08/25/2019 5mg prn nausea from Capsules chemotherapy Lorazepam 1-2 pills Q6 hours 16tabs Lawrence Johnson MD 08/25/2019 0.5mg prn Tablets History Medications Sulfamethoxazole/Trimethoprim DS take 1 by 14tarupali Melgoza 07/07/2019 - 800-160mg mouth twice MD [place] 06/25/2019 Tablets daily for 7 days or as directed by physician Nitrofurantoin Monohyd Macro 1 tab by 10caps R35. Fabiola Aittama, 07/06/2019 - 100mg Capsules mouth 2 times 0 [employer]OC OPERATIONS INTELLIGENCE CHIEF 06/25/2019 daily Zithromax Oral; Take 2 6tabs Unknown 03/22/2019 - 250mg Tablets tablets now 03/27/2019 then take 1 tablet daily for four more days. Take one hour before or two hours after a meal Immunizations CPT Code Status Date Vaccine Lot # [id number] Given 07/20/2019 Flu < 65 years [id number] 86853 Given 07/21/2013 Tdap - Boostrix/Adacel 44080 Given 04/21/2000 Hep A Adult for >18 yrs Havrix/Vaqta 10619 Given 10/14/1999 Hep A Adult for >18 yrs Havrix/Vaqta 14847 Given 09/28/1995 Hep B 11-15yr, Recombivax 1.0ml dose only 59186 Given 03/01/1995 Hep B 11-15yr, Recombivax 1.0ml dose only 81306 Given 01/09/1995 Varicella (Chicken Pox) Vaccine 70779 Given 08/24/1994 Hep B 11-15yr, Recombivax 1.0ml dose only 71069 Given 07/19/1989 Polio - Ipol 57928 Given 07/19/1989 MMR Vaccine 13954 Given 08/08/1985 Hib ActiHib/Hiberix 59247 Given 10/02/1983 MMR Vaccine Vital Signs Date [...] H/L Range Note CFM Rapid Flu 08/25/2019 [facility] Influenza A Rapid Neg A & B [...] Auto CNT 215 Urine Culture And 07/24/2019 [facility] Urine Culture SEE RESULT 1, [address] [place] [address] [phone] Urine Culture And 07/06/2019 [facility] Urine Culture SEE RESULT [address] [place] [address] [phone] CFM Urinalysis 07/06/2019 [facility] Urine Specific 1.020 ( )- - [place] Ua PH Test Strip 7.0 Ua Color [...] MCV 92 fL 81 - 99 fL [place]# 05/12/2019 N2N/CCD Import [place]# 0.4 10-9/L 0 - 1.1 10-9/L [place]% 05/12/2019 N2N/CCD Import [place]% 0.4 % 0 - 10 % Neut% [...] N2N/CCD Import Potassium 4.9 mmol/L Laboratory 05/04/2019 [facility] Surgical SEE RESULT 4 test finding [address] [place] [address] [phone] Protein-Ua 04/14/2019 N2N/CCD Import Protein-Ua Negative Negative [...] N2N/CCD Import MPV 7.5 fL 7.4-10.4 fL [place]% 04/14/2019 N2N/CCD Import [place]% 5.1 % 0 - 10 % [place]# 04/14/2019 N2N/CCD Import [place]# 0.3 10_3/ul 0-0.8 10 3/ul MCV 04/14/2019 [...] any bacteria 2 SEE RESULT BELOW Name: ANGELMARIA GUADALUPEUVALDO : [address]: Lawrence Johnson MD Acct: [id number] Unit: [id number] AGE: 39 Location: [facility] Re07/24/19 SEX: F Status: REG REF SPEC: [id number] LEILA: 07/24/19-1542 [facility] [place] DR: Lawrence Johnson MD REQ: [id number] RECD: 07/24/19 STATUS: COMP _ SOURCE: URINE SPDESC: ORDERED: Urine Culture COMMENTS: [id number] Urine Source: Random Procedure Result Reported Site Urine Culture Final 07/25/19- 1613 ML No growth of clinically significant organisms * ML - Main Lab . Patient: ALBERT ORTIZICA [id number] (Continued) CONTINUED ON NEXT PAGE DEPARTMENT OF PATHOLOGY, [address] [place] [address] Rashawn Gonzalez M.D. Director [facility] # [id number] 3 SEE RESULT BELOW Name: UVALDO ORTIZ : [address]: Fabiola Davenport NP Acct: [id number] Unit: [id number] AGE: 39 Location: [facility] Re07/06/19 SEX: F Status: REG REF SPEC: [id number] LEILA: 07/06/19-[address]: Fabiola Davenport NP REQ: [id number] RECD: 07/06/19 STATUS: COMP _ SOURCE: URINE SPDESC: ORDERED: Urine Culture COMMENTS: [id number] Urine Source: Random Procedure Result Reported Site Urine Culture Final 07/08/19- 0909 ML Organism 1 KLEBSIELLA PNEUMONIAE [place] Count >100,000 (Many) CFU/ML 1. KLEBSIELLA PNEUMONIAE [...] . END OF REPORT DEPARTMENT OF PATHOLOGY, [address] [place] [address] Rashawn Gonzalez M.D. Director [facility] # [id number] 4 SEE RESULT BELOW Name: ALBERT ORTIZICA : [address]: Ryan Grey MD Acct: [id number] Unit: [id number] AGE: 38 Location: [facility] Re05/04/19 SEX: F Status: REG REF SPEC: [id number] LEILA: 05/04/191059 [facility] DR: Ryan Grey MD REQ: [id number] RECD: 05/04/19 STATUS: BREE PARKINSON DR: Hallie Knight MD _ ORDERED: LEVEL 4 COMMENTS: [id number] FINAL DIAGNOSIS Uterus, cervix, biopsy: -- Invasive, [...] 0942 END OF REPORT DEPARTMENT OF PATHOLOGY, [address] [place] [address] Rashawn Gonzalez M.D. Director [facility] # [id number] Procedures Description No Information Available Medical Devices Description No Information Available Encounters Type Date Location Provider Dx Diagnosis Office Visit 08/25/2019 4:30p CFM Main Lawrence Johnson MD R50.9 Fever, unspecified R05 Cough C53.9 Malignant neoplasm of cervix uteri, unspecified Office Visit 07/24/2019 3:00p CFM Main Lawrence Johnson MD J04.0 Acute laryngitis C53.9 Malignant neoplasm of cervix uteri, unspecified Office Visit 07/06/2019 2:00p CFM Main Fabiola Davenport, AOC OPERATIONS INTELLIGENCE CHIEF R35.0 Frequency of micturition N39.0 Urinary tract infection, site not specified Office Visit 06/21/2019 9:45a CFM Main Zoie Rivas, C53.9 Malignant neoplasm DO of cervix uteri, unspecified K59.00 Constipation, unspecified L76.32 Postproc hematoma of skin, subcu following other procedure Assessments Date Code Description Provider 08/25/2019 R50.9 Fever, unspecified Lawrence Johnson MD 08/25/2019 R05 Cough Lawrence Johnson MD 08/25/2019 C53.9 Malignant neoplasm of cervix uteri, Lawrence Johnson MD unspecified 07/24/2019 J04.0 Acute laryngitis Lawrence Johnson MD 07/24/2019 C53.9 Malignant neoplasm of cervix uteri, Lawrence Johnson MD unspecified 07/20/2019 Z23 Encounter for immunization Nurse 07/06/2019 R35.0 Frequency of micturition Fabiola Davenport [employer]OC OPERATIONS INTELLIGENCE CHIEF 07/06/2019 N39.0 Urinary tract infection, site not specified VIRGILIO WhiteP 06/21/2019 C53.9 Malignant neoplasm of cervix uteri, Zoie Georgew, DO unspecified 06/21/2019 K59.00 Constipation, unspecified Zoie Georgew, DO 06/21/2019 L76.32 Postprocedural hematoma of skin and Zoie Rivas, DO subcutaneous tissue following other procedure Plan of Treatment 08/25/2019 - Lawrence Alex, MDR50.9 Fever, hrpmzudcvopN02 DaqxwZ25.9 Malignant neoplasm of cervix uteri, unspecifiedAllNew Medication:Dronabinol 5 mg - 1-2 capules Q4 hr prn nausea from chemotherapyLorazepam 0.5 mg - 1-2 pills Q6 hours prn Functional Status Description No Information Available Mental Status Description No Information Available Referrals Description No Information Available
--- OUTSIDE RECORDS SUMMARY | 2019-08-27 16:34 | XMS REPORT | Continuity of Care Document ---
:1980 External Reference #:[id number] Author Name Lawrence Johnson MD (transmitted by agent of provider Saira Small) Address [address] [place] [address] Problems Active Problems Provider Date Malignant neoplasm [...] Medications Sulfamethoxazole/Trimethoprim DS take 1 by 14tabs [place] 07/07/2019 - 800-160mg mouth twice MD [place] 06/25/2019 Tablets daily for 7 days or as directed by physician Nitrofurantoin Monohyd Macro 1 tab by 10caps R35. Fabiola Aittama, 07/06/2019 - 100mg Capsules mouth 2 times 0 VETERINARY SURGERY TECHNICIAN 06/25/2019 daily Zithromax Oral; Take 2 6tabs Unknown 03/22/2019 - 250mg Tablets tablets now 03/27/2019 then take 1 tablet daily for four more days. Take one hour before or two hours after a meal Immunizations CPT Code Status Date Vaccine Lot # [id number] Given 07/20/2019 Flu < 65 years [id number] 91757 Given 07/21/2013 Tdap - Boostrix/Adacel 35644 Given 04/21/2000 Hep A Adult for >18 yrs Havrix/Vaqta 78555 Given 10/14/1999 Hep A Adult for >18 yrs Havrix/Vaqta 57555 Given 09/28/1995 Hep B 11-15yr, Recombivax 1.0ml dose only 42745 Given 03/01/1995 Hep B 11-15yr, Recombivax 1.0ml dose only 80527 Given 01/09/1995 Varicella (Chicken Pox) Vaccine 76986 Given 08/24/1994 Hep B 11-15yr, Recombivax 1.0ml dose only 16839 Given 07/19/1989 Polio - Ipol 12293 Given 07/19/1989 MMR Vaccine 62893 Given 08/08/1985 Hib ActiHib/Hiberix 54808 Given 10/02/1983 MMR Vaccine Vital Signs Date [...] H/L Range Note CFM Rapid Flu 08/25/2019 [facility] Influenza A Rapid Neg A & [...] 1, [address] [place] [address] [phone] Urine Culture And 07/06/2019 [facility] Urine Culture SEE RESULT [address] [place] [address] [phone] CFM Urinalysis 07/06/2019 [facility] Urine Specific 1.020 ( )- - [place] Ua PH Test Strip 7.0 Ua Color [...] MCV 92 fL 81 - 99 fL [place]# 05/12/2019 N2N/CCD Import [place]# 0.4 10-9/L 0 - 1.1 10-9/L [place]% 05/12/2019 N2N/CCD Import [place]% 0.4 % 0 - 10 % Neut% [...] test finding [address] [place] [address] [phone] Protein-Ua 04/14/2019 N2N/CCD Import Protein-Ua Negative Negative [...] N2N/CCD Import MPV 7.5 fL 7.4-10.4 fL [place]% 04/14/2019 N2N/CCD Import [place]% 5.1 % 0 - 10 % [place]# 04/14/2019 N2N/CCD Import [place]# 0.3 10_3/ul 0-0.8 10 3/ul MCV 04/14/2019 [...] [address]: Lawrence Johnson MD Acct: [id number] Unit: [id number] AGE: 39 Location: [facility] Re07/24/19 SEX: F Status: REG REF SPEC: [id number] LEILA: 07/24/19-1542 [facility] DR: Lawrence Johnson MD REQ: [id number] RECD: 07/24/19 STATUS: COMP _ SOURCE: URINE SPDESC: ORDERED: Urine Culture COMMENTS: [id number] Urine Source: Random Procedure Result Reported Site Urine Culture Final 07/25/19- 1613 ML No growth of clinically significant organisms * ML - Main Lab . Patient: UVALDO ORTIZ [id number] (Continued) CONTINUED ON NEXT PAGE DEPARTMENT OF PATHOLOGY, [address] [place] [address] Rashawn Gonzalez M.D. Director [facility] # [id number] 3 SEE RESULT BELOW Name: UVALDO ORTIZ : [address]: Fabiola Davenport NP Acct: [id number] Unit: [id number] AGE: 39 Location: [facility] Re07/06/19 SEX: F Status: REG REF SPEC: [id number] LEILA: 07/06/19-[address]: Fabiola Davenport NP REQ: [id number] RECD: 07/06/19 STATUS: COMP _ SOURCE: URINE SPDESC: ORDERED: Urine Culture COMMENTS: [id number] Urine Source: Random Procedure Result Reported Site Urine Culture Final 07/08/19- 908 ML Organism 1 KLEBSIELLA PNEUMONIAE [place] Count >100,000 (Many) CFU/ML 1. KLEBSIELLA PNEUMONIAE [...] END OF REPORT DEPARTMENT OF PATHOLOGY, [address] [place] [address] Rashawn Gonzalez M.D. Director [facility] # [id number] 4 SEE RESULT BELOW Name: ALBERT ORTIZICA : [address]: Ryan Grey MD Acct: [id number] Unit: [id number] AGE: 38 Location: [facility] Re05/04/19 SEX: F Status: REG REF SPEC: [id number] LEILA: 05/04/19-1059 [facility] DR: Ryan Grey MD REQ: [id number] RECD: 05/04/19 STATUS: BREE PARKINSON DR: Hallie Knight MD _ ORDERED: LEVEL 4 COMMENTS: [id number] FINAL DIAGNOSIS Uterus, cervix, biopsy: -- Invasive, [...] 0942 END OF REPORT DEPARTMENT OF PATHOLOGY, [address] [place] [address] Rashawn Gonzalez M.D. Director [facility] # [id number] Procedures Description No Information Available Medical Devices Description No Information Available Encounters Type Date Location Provider Dx Diagnosis Office Visit 07/24/2019 3:00p CFM Main Lawrence Johnson MD J04.0 Acute laryngitis C53.9 Malignant neoplasm of cervix uteri, unspecified Office Visit 07/06/2019 2:00p CFM Main Fabiola Davenport, VETERINARY SURGERY TECHNICIAN R35.0 Frequency of micturition N39.0 Urinary tract [...] 07/06/2019 R35.0 Frequency of micturition Fabiola Davenport, VETERINARY SURGERY TECHNICIAN 07/06/2019 N39.0 Urinary tract infection, site not specified Fabiola Davenport, VETERINARY SURGERY TECHNICIAN 06/21/2019 C53.9 Malignant neoplasm of cervix uteri, [...]
--- NOTE | 2019-08-27 16:50 | ED ---
GI/ HPI - HPI Summary HPI Summary: 39 year old female presents to the ED with a chief complaint of nausea starting after chemo treatment several days ago. Patient reports dry heaving, 100.8 fever , loss of appetite, abdominal discomfort. She is being treated for cervical cancer. She was prescribed Ativan but it caused terrors. Patient has another round of chemo tomorrow. - History of Current Complaint Chief Complaint: EDNauseaVomitDiarrh Time Seen by Provider: 08/27/19 16:43 Stated Complaint: GENERAL ILLNESS PER PT Hx Obtained From: Patient Onset/Duration: Started Days Ago Timing: Constant Severity: Moderate Current Severity: Moderate Pain Intensity: 4 Location of Pain: Diffuse Associated Signs and Symptoms: Positive: Nausea, Vomiting - Dry, Fever, Change in Appetite Additional Signs & Symptoms: Positive: Other: - Cancer - Allergy/Home Medications Allergies/Adverse Reactions: Allergies Allergy/AdvReac Type Severity Reaction Status Date / Time amoxicillin [From Augmentin] Allergy Hives Verified 08/27/19 16:19 clavulanic acid Allergy Hives Verified 04/24/19 15:08 [From Augmentin] latex Allergy RED & Verified 04/24/19 15:08 SWELLING - IN AREA OF USE lorazepam Allergy Hallucinati Verified 08/27/19 16:20 ons Home Medications: Home Medications Prochlorperazine TAB* [Compazine Tab*] 10 mg PO Q6H PRN 08/27/19 [History Confirmed 08/27/19] PMH/Surg Hx/FS Hx/Imm Hx Endocrine/Hematology History: Denies: Hx Diabetes Cardiovascular History: Denies: Hx Hypertension, Hx Pacemaker/ICD History: Denies: Hx Dialysis, Hx Renal Disease Sensory History: Reports: Hx Contacts or Glasses Denies: Hx Deafness, Hx Hearing Aid Opthamlomology History: Reports: Hx Contacts or Glasses Psychiatric History: Denies: Hx Panic Disorder - Cancer History Cancer Type, Location and Year: Cervical Cancer Infectious Disease History: No Infectious Disease History: Denies: Traveled Outside the [place] in Last 30 Days - Social History Alcohol Use: Rare Substance Use Type: Reports: None Smoking Status (MU): Never Smoked Tobacco Review of Systems Positive: Fever Positive: Vomiting, Nausea All Other Systems Reviewed And Are Negative: Yes Physical Exam - Summary Physical Exam Summary: Appearance: The patient is well-nourished in no acute distress and in no acute pain. Skin: The skin is warm and dry, and skin color reflects adequate perfusion. HEENT: The head is normocephalic and atraumatic. The pupils are equal and reactive. The conjunctivae are clear and without drainage. Nares are patent and without drainage. Mouth reveals dry mucous membranes, and the throat is without erythema and exudate. The external ears are intact. The ear canals are patent and without drainage. The tympanic membranes are intact. Neck: The neck is supple with full range of motion and non-tender. There are no carotid bruits. There is no neck vein distension. Respiratory: Chest is non-tender. Lungs are clear to auscultation and breath sounds are symmetrical and equal. Cardiovascular: Heart is regular rate and rhythm. There is no murmur or rub auscultated. There is no peripheral edema and pulses are symmetrical and equal. Abdomen: The abdomen is soft and non-tender. There are normal bowel sounds heard in all four quadrants and there is no organomegaly palpated. Musculoskeletal: There is no back tenderness noted. Extremities are non-tender with full range of motion. There is good capillary refill. There is no peripheral edema or calf tenderness elicited. Neurological: Patient is alert and oriented to person, place and time. The patient has symmetrical motor strength in all four extremities. Cranial nerves are grossly intact. Deep tendon reflexes are symmetrical and equal in all four extremities. Psychiatric: The patient has an appropriate affect and does not exhibit any anxiety or depression. Triage Information Reviewed: Yes Vital Signs On Initial Exam: Initial Vitals Temp Pulse Resp BP Pulse Ox 97.3 F 88 19 146/83 97 08/27/19 16:13 08/27/19 16:13 08/27/19 16:13 08/27/19 16:13 08/27/19 16:13 Vital Signs Reviewed: Yes Procedures - Sedation Patient Received Moderate/Deep Sedation with Procedure: No Diagnostics - Vital Signs Vital Signs Temp Pulse Resp BP Pulse Ox 08/27/19 16:13 97.3 F 88 19 146/83 97 - Laboratory Result Diagrams: 08/27/19 17:04 08/27/19 17:04 Lab Statement: Any lab studies that have been ordered have been reviewed, and results considered in the medical decision making process. GIGU Course/Dx - Course Course Of Treatment: Ms. Ovalles improved here with IV fluids and ketorolac. She was discharged to follow up with her oncologist. - Diagnoses Provider Diagnoses: Dehydration Discharge ED - Sign-Out/Discharge Documenting (check all that apply): Patient Departure - discharge - Discharge Plan Condition: Stable Disposition: HOME Patient Education Materials: Dehydration (ED) Referrals: Sharron Sumner MD [Medical Doctor] - Additional Instructions: Follow up with oncology in 2-3 days. Return to the Emergency Department if symptoms worsen or change. - Billing Disposition and Condition Condition: STABLE Disposition: Home - Attestation Statements Document Initiated by Scribe: Yes Documenting Scribe: Gabriel Hensley Provider For Whom Demarioibe is Documenting (Include Credential): Jerrod Rivas MD. Scribe Attestation: Gabriel Clark scribed for Jerrod Rivas MD. on 08/27/19 at 2048. Scribe Documentation Reviewed: Yes Provider Attestation: The documentation as recorded by the scribeGabriel accurately reflects the service I personally performed and the decisions made by , Jerrod Rivas MD. Status of Scribe Document: Viewed
[2019-08-27 17:10] LABS: Hematocrit 33 % (35-47); Hemoglobin 11.1 g/dL (12.0-16.0); Mean Corpuscular HGB Conc 33 g/dL (31-36); Mean Corpuscular Hemoglobin 27 pg (27-31); Mean Corpuscular Volume 82 fL (80-97); Mean Platelet Volume 6.6 fL (7.4-10.4); Platelet Count 136 10^3/uL (150-450); Red Blood Count 4.04 10^6 /uL (3.70-4.87); Red Cell Distribution Width 15 % (10-15); White Blood Count 3.6 10^3/uL (3.5-10.8)
[2019-08-27] MEDS: NS 0.9% 1000 ML** 2,000 ML IV ONE (17:11)
[2019-08-27 17:35] LABS: Albumin/Globulin Ratio 1.5 (1-3); BUN/Creatinine Ratio 10.1 (8-20); C Reactive Protein 43.73 mg/L (<8.01); Calcium 9.3 mg/dL (8.6-10.3); EGFR African American 99.1 (>60); EGFR Non-African American 81.9 (>60); Globulin 2.7 g/dL (2-4); Potassium 3.8 mmol/L (3.5-5.0); Total Bilirubin 0.5 mg/dL (0.2-1.0); Total Protein 6.7 g/dL (6.4-8.9)
[2019-08-27 17:40] LABS: ABS Eosinophils 0.1 10^3/ul (0-0.6); ABS Lymphocytes 0.1 10^3/ul (1.0-4.8); ABS Monocytes 0.3 10^3/ul (0-0.8); ABS Neutrophils 3.2 10^3/ul (1.5-7.7); Eosinophil % 1.7 %
[2019-08-27] MEDS ORDERED: Ketorolac INJ* 30 MG/ML 1 ML VIAL IV PUSH ONE (18:34)
[2019-08-27 21:00] VITALS: BP 122/85
== END 2019-08-27 21:00 | disposition home or self-care (01) ==
LOC: ED 16:11
DX: E86.0 Dehydration (principal); C53.9 Malignant neoplasm of cervix uteri, unspecified; R50.9 Fever, unspecified; Z88.0 Allergy status to penicillin; Z88.8 Allergy status to other drugs, medicaments and biological substances; Z88.1 Allergy status to other antibiotic agents; Z91.040 Latex allergy status
CPT/HCPCS: 36415; 80053; 85025; 86140; 96361; 96374; 99283; J1885

== ENCOUNTER 2020-02-02 19:54 | Emergency (ER) | payer OTHER ==
--- OUTSIDE RECORDS SUMMARY | 2020-02-02 20:03 | XMS REPORT | Continuity of Care Document ---
:1980 External Reference #:[id number] Author Name Rachelle James, ELECTRICAL CALIBRATOR-Cde (transmitted by agent of provider January) Address [address], [place] [address] Care Team Providers Name Role Phone Zoie Rivas DO - Family Care Team Information Machine Tailer [phone] Medicine Problems Description No Information Available Social History Type Date Description Comments Sex Unknown Tobacco Use Start: Unknown Never Smoked Cigarettes ETOH Use Rarely consumes alcohol Tobacco Use Start: Unknown Patient has never smoked Smoking Status Reviewed: 10/17/19 Patient has never smoked Exercise Type/Frequency Exercises sporadically Allergies, Adverse Reactions, Alerts Active Allergies Reaction Severity Comments Date Augmentin Hives 09/27/2019 Latex Contact dermatitis 09/27/2019 Ativan causes pyschotic episodes 09/27/2019 Medications Active Medications SIG Qnty Indications Ordering Provider Date Jenifer apply one patch 1units Rachelle James, 01/16/2020 0.1mg/24HR Patches to skin twice a ELECTRICAL CALIBRATOR-Cde Biweek week History Medications No Active Medications Unknown 10/17/2019 - 01/16/2020 No Active Medications Unknown 09/27/2019 - 09/27/2019 Estradiol 1 by mouth every 90tabs Ghada Amor, N.P. 09/27/2019 - Unknown 1mg Tablets day Progesterone Micronized 1 by mouth every 30caps Ghada Amor, N.P. 2018 - Unknown day 100mg Capsules Immunizations Description No Information Available Vital Signs Date Vital Result Comment 10/17/2019 10:05am Height 64 inches 5'4" Weight 119.12 lb Heart Rate 66 /min BP Systolic 110 mmHg BP Diastolic 74 mmHg O2 % BldC Oximetry 100 % BMI (Body Mass Index) 20.4 kg/m2 09/29/2019 1:45pm Height 64 inches 5'4" Weight 120.00 lb Heart Rate 77 /min BP Systolic 101 mmHg BP Diastolic 64 mmHg O2 % BldC Oximetry 100 % BMI (Body Mass Index) 20.6 kg/m2 Results Test Acquired Date Facility Test Result H/L Range Note Laboratory test 09/27/2019 [facility] Gardnerella/Y SEE RESULT [address]: [place] [address] Dna [phone] 1 SEE RESULT BELOW Name: UVALDO ORTIZ : [address]: Ghada Amor [employer]MENT Acct: [id number] Unit: [id number] AGE: 39 Location: [facility] Re09/27/19 SEX: F Status: REG REF SPEC: [id number] LEILA: 09/27/19-12[address] [facility] [address]: Ghada Amor [employer]MENT REQ: [id number] RECD: 09/27/19278 STATUS: COMP _ SOURCE: VAGINAL SPDESC: ORDERED: Freddie,Yeast DNA COMMENTS: [id number] Would you like to order Trichomonas Vaginalis testing? No Procedure Result Reported Site Gardnerella/Yeast: Vaginal DNA Final 09/28/19- 1403 ML Organism 1 Negative Gardnerella Organism 2 Negative Aga The presence of G. vaginalis, although suggestive, is not diagnostic for bacterial vaginosis. Results should be interpreted in conjuction with other clinical and laboratory data available. Women with vaginal discharge should be evaluated for risk factors of cervicitis and pelvic inflammatory disease, toxic shock syndrome (S.aureus), and if present, evaluated for organisms not included in this assay such as N. gonorrhoeae, C. trachomatis, Mobiluncus, Mycoplasma and/or Prevotella. Mixed infections may occur. The performance of this test on patient specimens collected during or immediately after antimicrobial therapy is unknown. The presence or absence of Aga species, or G. vaginalis cannot be used as a test for therapeutic success or failure. * ML - Main Lab . END OF REPORT DEPARTMENT OF PATHOLOGY, [address] [place] [address] Rashawn Gonzalez M.D. Director [facility] # [id number] Procedures Description No Information Available Medical Devices Description No Information Available Encounters Type Date Location Provider Dx Diagnosis Office Visit 01/16/2020 [facility] Rachelle James, E28.310 Symptomatic 1:00p [facility] premature menopause Z85.41 Personal history of malignant neoplasm of cervix uteri Office Visit 10/17/2019 10:00a [facility] Ghadarosa isela Amor, E28.310 Symptomatic [facility] premature menopause Z85.41 Personal history of malignant neoplasm of cervix uteri Z92.21 Personal history of antineoplastic chemotherapy Z92.3 Personal history of irradiation Office Visit 09/29/2019 1:00p [facility] Ghada Amor, N76.1 Subacute and [facility] of [facility] chronic vaginitis Office Visit 09/27/2019 11:40a [facility] Ghada Amor, E28.310 Symptomatic [facility] premature menopause N76.0 Acute vaginitis Z85.41 Personal history of malignant neoplasm of cervix uteri Z92.21 Personal history of antineoplastic chemotherapy Z92.3 Personal history of irradiation Assessments Date Code Description Provider 01/16/2020 E28.310 Symptomatic premature menopause Rachelle JamesVIRGILIOP-basil 01/16/2020 Z85.41 [facility] 10/17/2019 E28.310 Symptomatic premature menopause Ghada Amor, N.P. 10/17/2019 Z85.41 Personal history of malignant neoplasm of Ghada Amor, N.P. cervix uteri 10/17/2019 Z92.21 Personal history of antineoplastic Ghada Amor N.P. chemotherapy 10/17/2019 Z92.3 Personal history of irradiation Ghada Amor N.P. 09/29/2019 N76.1 Subacute and chronic vaginitis Ghada Amor N.P. 09/27/2019 E28.310 Symptomatic premature menopause Ghada Amor N.P. 09/27/2019 N76.0 Acute vaginitis Ghada Amor N.P. 09/27/2019 Z85.41 Personal history of malignant neoplasm of Ghada Amor N.P. cervix uteri 09/27/2019 Z92.21 Personal history of antineoplastic Ghada Amor N.P. chemotherapy 09/27/2019 Z92.3 Personal history of irradiation Ghada Amor N.P. Plan of Treatment No Information Available Functional Status Description No Information Available Mental Status Description No Information Available Referrals Refer to Reason for Referral Status Appt Date [facility] Therapy S/p radiation for cervical cancer Sent [address] [place] [address] [phone]
--- OUTSIDE RECORDS SUMMARY | 2020-02-02 20:03 | XMS REPORT | Continuity of Care Document ---
:1980 External Reference #:[id number] Author Name Zoie Rivas, DO Address [address] [facility] [place] [address] Problems Active Problems Provider Date Malignant neoplasm of uterus Lawrence Johnson MD Onset: 06/15/2019 Note: April 2019, yuri minor with complication ureteral transection, rec estrogen HRT Malignant tumor of cervix Onset: 05/19/2019 Social History Type Date Description Comments Sex Unknown Tobacco Use Start: Unknown Patient has never smoked Smoking Status Reviewed: 12/01/19 Patient has never smoked Allergies, Adverse Reactions, Alerts Active Allergies Reaction Severity Comments Date Augmentin Clavulanate part 06/16/2019 Hormonal Contraception extreme depression 06/16/2019 Ativan psychosis 08/28/2019 Medications Active Medications SIG Qnty Indications Ordering Provider Date No Active Medications Unknown 12/01/2019 History Medications Dexamethasone 1 daily 10tabs Lawrence Johnson MD 08/28/2019 - 4mg Tablets 11/27/2019 Dronabinol 1-2 capules Q4 hr prn 60caps Lawrence Johnson MD 08/25/2019 - 5mg Capsules nausea from 11/27/2019 chemotherapy Lorazepam 1-2 pills Q6 hours 16tabs Lawrence Johnson MD 08/25/2019 - 0.5mg Tablets prn 08/28/2019 Immunizations CPT Code Status Date Vaccine Lot # [id number] Given 07/20/2019 Flu < 65 years [id number] Given 07/21/2013 Tdap - Boostrix/Adacel 48024 Given 04/21/2000 Hep A Adult for >18 yrs Havrix/Vaqta 99524 Given 10/14/1999 Hep A Adult for >18 yrs Havrix/Vaqta 11048 Given 09/28/1995 Hep B 11-15yr, Recombivax 1.0ml dose only 20088 Given 03/01/1995 Hep B 11-15yr, Recombivax 1.0ml dose only 08645 Given 01/09/1995 Varicella (Chicken Pox) Vaccine 92497 Given 08/24/1994 Hep B 11-15yr, Recombivax 1.0ml dose only 17609 Given 07/19/1989 Polio - Ipol 89836 Given 07/19/1989 MMR Vaccine 24234 Given 08/08/1985 Hib ActiHib/Hiberix 49670 Given 10/02/1983 MMR Vaccine Vital Signs Date Vital Result Comment 12/01/2019 8:29am BP Systolic 124 mmHg BP Diastolic 78 mmHg Weight 111.00 lb Heart Rate 76 /min Body Temperature 98.1 F O2 % BldC Oximetry 98 % 08/25/2019 4:16pm BP Systolic 118 mmHg BP Diastolic 80 mmHg Weight 122.00 lb Heart Rate 69 /min Body Temperature 99.1 F O2 % BldC Oximetry 99 % Results Test Acquired Date Facility Test Result H/L Range Note Laboratory test 01/24/2020 [facility] TSH (Thyroid 2.01 Normal 0.34-5.[address] Stim Horm) mcIU/[place] [address] [phone] CMP 09/21/2019 N2N/CCD Import Albumin QN 4.3 Serum/Plasma Alt - SGPT 20 Calcium Ser/Plasma Mass/Vol 9.2 Carbon Dioxide QN Ser/Plas 27 Chloride Serum/Plasma 104 Creatinine QN Serum MCNC 0.88 Glucose Serum 82 Alkaline Phosphatase QN Ser/PL 42 Potassium QN Ser/PL Mols/Vol 4.4 Sodium QN Ser/Plasma 142 Ast - Sgot 15 BUN - Urea Nitrogen Ser/Plas 15 GFR 84 GFR 97 CBC W/Auto Differential 09/21/2019 N2N/CCD Import White Blood Count Ser 1.7 Auto CNT RBC Red Blood Count-Auto 3.6 Hemoglobin Blood 9.9 Hematocrit 30 Low 35-45 MCV (Corpuscular Volume) 84 MCH (Corpuscular Hemoglobin) 28 MCHC (Corpuscular Hemog Conc) 33 RDW 15.8 Platelet Count Blood Auto CNT 193 Neutrophils 1.0 Fluid Lymphocytes 0.4 Monocytes 0.2 Fluid Body Eosinophils Manual 0.1 Basophils % 0.[address] Basophils BLD Auto CT 0.0 Absolute Eosinophils 6.6 Absolute Lymphocytes Blood 22.3 Absolute Monocytes 11.4 [facility] 08/31/2019 N2N/CCD Import Albumin QN Serum/Plasma 4.3 Alt - SGPT 42 Calcium Ser/Plasma Mass/Vol 9.3 Carbon Dioxide QN Ser/Plas 29 Chloride Serum/Plasma 99 Creatinine QN Serum MCNC 0.86 Glucose Serum 75 Alkaline Phosphatase QN Ser/PL 47 Potassium QN Ser/PL Mols/Vol 3.7 Protein Total QN Ser/Plas 6.5 Sodium QN Ser/Plasma 140 Ast - Sgot 30 BUN - Urea Nitrogen Ser/Plas 11 Bilirubin Total Mass/Vol <0.2 GFR 86 GFR 100 CFM Rapid Flu A & B 08/25/2019 [facility] Influenza A Rapid Test Neg ( )- - Influenza B Rapid Test Neg [facility] 08/21/2019 N2N/CCD Import Albumin QN Serum/Plasma 4.6 [...] Monocytes 0.2 Absolute Neutrophils Auto CNT 2.0 [facility] 08/18/2019 N2N/CCD Import Albumin QN Serum/Plasma 4.1 [...] 13.9 Platelet Count Blood Auto CNT 215 Procedures Description No Information Available Medical Devices Description No Information Available Encounters Type Date Location Provider Dx Diagnosis Office Visit 12/01/2019 CFM Raul Whitehead MD J06.9 Acute upper 8:15a respiratory infection, unspecified 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, bilateral R63.4 Abnormal weight loss Office Visit 08/25/2019 4:30p CFM Raul Johnson MD R50.9 Fever, unspecified R05 Cough C53.9 Malignant neoplasm of cervix uteri, unspecified Assessments Date Code Description Provider 12/01/2019 J06.9 Acute upper respiratory infection, unspecified Rhona Whitehead MD 12/01/2019 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, bilateral Rhona Whitehead MD 12/01/2019 R63.4 Abnormal weight loss Rhona Whitehead MD 08/25/2019 R50.9 Fever, unspecified Lawrence Johnson MD 08/25/2019 R05 Cough Lawrence Johnson MD 08/25/2019 C53.9 Malignant neoplasm of cervix uteri, unspecified Lawrence Johnson MD Plan of Treatment 12/01/2019 - Rhona Whitehead MDJ06.9 Acute upper respiratory infection, nqbhdfksfroY24.722 Acquired absence of ovaries, hmcwolzfgT70.4 Abnormal weight lossAllNew Medication:No Active Medications - Functional Status Description No Information Available Mental Status Description No Information Available Referrals Description No Information Available
--- OUTSIDE RECORDS SUMMARY | 2020-02-02 20:03 | XMS REPORT | Continuity of Care Document ---
:1980 External Reference #:[id number] Author Name Zoie Rivas, DO Address [address] [place] [address] Problems Active Problems Provider Date Malignant neoplasm of uterus Lawrence Johnson MD Onset: 06/15/2019 Note: April 2019, yuri hyst with complication ureteral transection, rec estrogen HRT Malignant tumor of cervix Onset: 05/19/2019 Migraine with aura Zoie Rivas, Onset: 01/29/2020 Social History Type Date Description Comments Sex Unknown Tobacco Use Start: Unknown Patient has never smoked Smoking Status Reviewed: 01/29/20 Patient has never smoked Allergies, Adverse Reactions, Alerts Active Allergies Reaction Severity Comments Date Augmentin Clavulanate part 06/16/2019 Hormonal Contraception extreme depression 06/16/2019 Ativan psychosis 08/28/2019 Medications Active Medications SIG Qnty Indications Ordering Provider Date Ketoconazole external; apply 240ml Zoie Rivas, 01/29/2020 2% Shampoo to scalp twice DO weekly for up to 8 weeks, then prn Jenifer Apply 1 Patch To Unknown 0.1mg/24HR Patches The Skin Two Biweek Times A Week History Medications Dexamethasone 1 daily 10tabs Lawrence Johnson MD 08/28/2019 - 4mg Tablets 11/27/2019 Dronabinol 1-2 capules Q4 hr prn 60caps Lawrence Johnson MD 08/25/2019 - 5mg Capsules nausea from 11/27/2019 chemotherapy Lorazepam 1-2 pills Q6 hours 16tabs Lawrence Johnson MD 08/25/2019 - 0.5mg Tablets prn 08/28/2019 Immunizations CPT Code Status Date Vaccine Lot # [id number] Given 07/20/2019 Flu < 65 years [id number] 99022 Given 07/21/2013 Tdap - Boostrix/Adacel 95534 Given 04/21/2000 Hep A Adult for >18 yrs Havrix/Vaqta 49155 Given 10/14/1999 Hep A Adult for >18 yrs Havrix/Vaqta 93921 Given 09/28/1995 Hep B 11-15yr, Recombivax 1.0ml dose only 77892 Given 03/01/1995 Hep B 11-15yr, Recombivax 1.0ml dose only 71815 Given 01/09/1995 Varicella (Chicken Pox) Vaccine 57412 Given 08/24/1994 Hep B 11-15yr, Recombivax 1.0ml dose only 80005 Given 07/19/1989 Polio - Ipol 79560 Given 07/19/1989 MMR Vaccine 57910 Given 08/08/1985 Hib ActiHib/Hiberix 67649 Given 10/02/1983 MMR Vaccine Vital Signs Date Vital Result Comment 01/29/2020 11:30am Height 64 inches 5'4" Weight 116.00 lb BMI (Body Mass Index) 19.9 kg/m2 12/01/2019 8:29am BP Systolic 124 mmHg BP Diastolic 78 mmHg Weight 111.00 lb Heart Rate 76 /min Body Temperature 98.1 F O2 % BldC Oximetry 98 % Results Test Acquired Facility Test Result H/L Range Note Date Laboratory test 01/24/2020 [facility] TSH (Thyroid 2.01 Normal 0.34-5.[address] Stim Horm) mcIU/mL 0 [place] [address] [phone] Testosterone 01/24/2020 [facility] Free 0.12 0.06-1.0 1 Free & Total [address] Testosterone ng/dL 0 [place] [address] ng/dl [phone] Testosterone 12 ng/dL 8-60 2 CMP 09/21/2019 N2N/CCD Import Albumin QN Serum/Plasma 4.3 Alt - SGPT 20 Calcium Ser/Plasma Mass/Vol [...] Absolute Lymphocytes Blood 22.3 Absolute Monocytes 11.4 CMP 08/31/2019 N2N/CCD Import Albumin QN Serum/Plasma 4.3 [...] CFM Rapid Flu A & B 08/25/[address] [facility] Influenza A Rapid Test Neg ( )- - Influenza B Rapid Test Neg [facility] 08/21/2019 N2N/CCD Import Albumin QN Serum/Plasma 4.6 [...] 13.9 Platelet Count Blood Auto CNT 215 1 ADDITIONAL INFORMATION Testing performed by [facility]. This test was developed and its performance characteristics determined by [facility] in a manner consistent with CLIA requirements. This test has not been cleared or approved by the U.S. Food and Drug Administration. 2 ADDITIONAL INFORMATION Testing performed by Liquid Chromatography-Tandem Mass Spectrometry (LC-MS/MS). This test was developed and its performance characteristics determined by [facility] in a manner consistent with CLIA requirements. This test has not been cleared or approved by the U.S. Food and Drug Administration. Test Performed by: [facility] [address] [place] [address] Grain Origination Specialist: Hiren Moody M.D. 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, bilateral R63.4 Abnormal weight loss Office Visit 08/25/2019 4:30p CF Raul Johnson MD R50.9 Fever, unspecified R05 Cough C53.9 Malignant neoplasm of cervix uteri, unspecified Assessments Date Code Description Provider 01/29/2020 L21.9 Seborrheic dermatitis, unspecified Zoie Rivas, DO 01/29/2020 R11.2 Nausea with vomiting, unspecified Zoie Rivas, DO 01/29/2020 R51 Headache Zoie Rivas, DO 12/01/2019 J06.9 Acute upper respiratory infection, Rhona Whitehead MD unspecified 12/01/2019 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, bilateral Rhona Whitehead MD 12/01/2019 R63.4 Abnormal weight loss Rhona Whitehead MD 08/25/2019 R50.9 Fever, unspecified Lawrence Johnson MD 08/25/2019 R05 Cough Lawrence Johnson MD 08/25/2019 C53.9 Malignant neoplasm of cervix uteri, Lawrence Johnson MD unspecified Plan of Treatment 01/29/2020 - Zoie Rivas, DOL21.9 Seborrheic dermatitis, unspecifiedComments:Discussed differential - lino derm, psoriasis, otherBased on pics she sent, most likely lino dermWill try Ketoconazole shampoo - if does not resolve, then will add topical corticosteroidShe will call if not resolvingCan do oral benadryl at night since experiencing lots of ruwufuoI22.2 Nausea with vomiting, unspecifiedComments:Associted with her migraineNot newDiscused if has new symptoms, we need to consider if needs brain imaging She does not feel this reaction is out of the ordinary for herR51 HeadacheComments:Long standing hx of migraineSounds like might be migriane with auraShe is on estrogen, which is usually contraindicated in migraine with aura although she is in a different situation since went throughsurgical menopause and then got put on the hormones , so really just getting her to physiologic levelsShe did not, however, tell the treating provider about her migraine hx and I have advised her to that they at least discuss thisAllNew Medication:Ketoconazole 2 % - external; apply to scalp twice weekly for up to 8 weeks, then prnComments:Patient was seen today via Telemedicine visit, after consent was obtained, due to current COVID-19 pandemic. This encounter was reasonable to do via telehealth given the current circumstances. Patient aware of the limitations of a tele visit and consented to proceed with the visit despite these limitations. Functional Status Description No Information Available Mental Status Description No Information Available Referrals Description No Information Available
--- OUTSIDE RECORDS SUMMARY | 2020-02-02 20:03 | XMS REPORT | Continuity of Care Document ---
:1980 External Reference #:[id number] Author Name Zoie Rivas, DO Address [address] [facility] [place] [address] Problems Active Problems Provider Date Malignant neoplasm [...] CPT Code Status Date Vaccine Lot # [id number] Given 07/20/2019 Flu < 65 years [id number] 71038 Given 07/21/2013 Tdap - Boostrix/Adacel 27437 Given 04/21/2000 Hep A Adult for >18 yrs Havrix/Vaqta 75477 Given 10/14/1999 Hep A Adult for >18 yrs Havrix/Vaqta 28067 Given 09/28/1995 Hep B 11-15yr, Recombivax 1.0ml dose only 83669 Given 03/01/1995 Hep B 11-15yr, Recombivax 1.0ml dose only 04489 Given 01/09/1995 Varicella (Chicken Pox) Vaccine 21091 Given 08/24/1994 Hep B 11-15yr, Recombivax 1.0ml dose only 60966 Given 07/19/1989 Polio - Ipol 98430 Given 07/19/1989 MMR Vaccine 36136 Given 08/08/1985 Hib ActiHib/Hiberix 32701 Given 10/02/1983 MMR Vaccine Vital Signs Date [...] BldC Oximetry 99 % Results Test Acquired Facility Test Result H/L Range Note Date Laboratory test 01/24/2020 [facility] TSH (Thyroid 2.01 Normal 0.34-5.[address] Stim Horm) mcIU/mL 0 [place] [address] [phone] Testosterone 01/24/2020 [facility] Free 0.12 0.06-1.0 1 Free & Total [address] Testosterone ng/dL 0 [place] [address] ng/dl [phone] Testosterone 12 ng/dL 8-60 2 CMP 09/21/2019 [...] Absolute Lymphocytes Blood 22.3 Absolute Monocytes 11.4 [facility] 08/31/2019 N2N/CCD Import Albumin QN Serum/Plasma 4.3 [...] CFM Rapid Flu A & B 08/25/2019 [facility] Influenza A Rapid Test Neg ( )- - Influenza B Rapid Test Neg [facility] 08/21/2019 N2N/CCD Import Albumin QN Serum/Plasma 4.6 [...] Monocytes 0.2 Absolute Neutrophils Auto CNT 2.0 [facility] 08/18/2019 N2N/CCD Import Albumin QN Serum/Plasma 4.1 [...] developed and its performance characteristics determined by [facility] in a manner consistent with CLIA requirements. This test has not been cleared or approved by the U.S. Food and Drug Administration. 2 ADDITIONAL INFORMATION Testing performed by Liquid Chromatography-Tandem Mass Spectrometry (LC-MS/MS). This test was developed and its performance characteristics determined by [facility] in a manner consistent with CLIA requirements. This test has not been cleared or approved by the U.S. Food and Drug Administration. Test Performed by: [facility] [address] [place] [address] Rim Turning Machine Operator: Hiren Moody M.D. 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
--- OUTSIDE RECORDS SUMMARY | 2020-02-02 20:03 | XMS REPORT | Continuity of Care Document ---
:1980 External Reference #:[id number] Author Name Rhona Whitehead MD (transmitted by agent of provider Mary Escalera) Address [address] [place] [address] Problems Active Problems Provider Date Malignant neoplasm [...] Medications Dexamethasone 1 daily 10tabs Lawrence Johnson 08/28/2019 - 4mg Tablets 11/27/2019 Dronabinol 1-2 capules Q4 hr 60caps Lawrence Johnson 08/25/2019 - 5mg Capsules prn nausea from 11/27/2019 chemotherapy Lorazepam 1-2 pills Q6 hours 16tabs Lawrence Johnson 08/25/2019 - 0.5mg Tablets prn 08/28/2019 Sulfamethoxazole/Trime take 1 by mouth 14tabs Rhona 07/07/2019 - thoprim DS twice daily for 7 MD [place] 06/25/2019 800-160mg days or as directed Tablets by physician Nitrofurantoin Monohyd 1 tab by mouth 2 10caps R35.0 Fabiola Aittama, 2018 - Macro times daily 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 06/25/2019 100mg Capsules Immunizations CPT Code Status Date Vaccine Lot # [id number] Given 07/20/2019 Flu < 65 years [id number] 13740 Given 07/21/2013 Tdap - Boostrix/Adacel 80796 Given 04/21/2000 Hep A Adult for >18 yrs Havrix/Vaqta 84358 Given 10/14/1999 Hep A Adult for >18 yrs Havrix/Vaqta 62315 Given 09/28/1995 Hep B 11-15yr, Recombivax 1.0ml dose only 25302 Given 03/01/1995 Hep B 11-15yr, Recombivax 1.0ml dose only 85792 Given 01/09/1995 Varicella (Chicken Pox) Vaccine 92853 Given 08/24/1994 Hep B 11-15yr, Recombivax 1.0ml dose only 87313 Given 07/19/1989 Polio - Ipol 05626 Given 07/19/1989 MMR Vaccine 57475 Given 08/08/1985 Hib ActiHib/Hiberix 55137 Given 10/02/1983 MMR Vaccine Vital Signs Date [...] Facility Test Result H/L Range Note CMP 09/21/2019 N2N/CCD Import Albumin QN Serum/Plasma [...] Absolute Lymphocytes Blood 22.3 Absolute Monocytes 11.4 [facility] 08/31/2019 N2N/CCD Import Albumin QN [...] CFM Rapid Flu A & B 08/25/2019 [facility] Influenza A Rapid Test Neg ( )- - Influenza B Rapid Test Neg [facility] 08/21/2019 N2N/CCD Import Albumin QN [...] Monocytes 0.2 Absolute Neutrophils Auto CNT 2.0 [facility] 08/18/2019 N2N/CCD Import Albumin QN [...] Auto CNT 215 Urine Culture And 07/24/2019 [facility] Urine Culture SEE RESULT 1, [address] [place] [address] [phone] CFM Urinalysis 07/06/2019 [facility] Urine Specific 1.020 ( )- - [place] Ua PH Test Strip 7.0 Ua Color <pending> Ua Appearance <pending> Ua WBC large Ua Protein 100 Urine Glucose QL negative Urine Ketones QL Test Strip negative Urine Bilirubin TTL QL T-Strip negative Urine Urobilinogen QN TS 0.2 Urine Nitrite QL TS positive Ua Occult Blood moderate Urine Culture And 07/06/2019 [facility] Urine Culture SEE RESULT [address] [place] [address] [phone] 1 TC to pt - no growth of any bacteria 2 SEE RESULT BELOW Name: UVALDO ORTIZ : [address]: Lawrence Johnson MD Acct: [id number] Unit: [id number] AGE: 39 Location: [facility] Re07/24/19 SEX: F Status: REG REF SPEC: [id number] LEILA: 07/24/19-[address]: Lawrence Johnson MD REQ: [id number] RECD: 07/24/19 STATUS: COMP _ SOURCE: URINE SPDESC: ORDERED: Urine Culture COMMENTS: [id number] Urine Source: Random Procedure Result Reported Site Urine Culture Final 07/25/19- 1613 ML No growth of clinically significant organisms * ML - Main Lab . Patient: UVALDO ORTIZ [id number] (Continued) CONTINUED ON NEXT PAGE DEPARTMENT OF PATHOLOGY, [address] [place] [address] Rashawn Gonzalez M.D. Director [facility] # [id number] 3 SEE RESULT BELOW Name: ALBERT ORTIZICA : [address]: Fabiola Davenport NP Acct: [id number] Unit: [id number] AGE: 39 Location: [facility] Re07/06/19 SEX: F Status: REG REF SPEC: [id number] LEILA: 07/06/[address]: Fabiola Davenport NP REQ: [id number] RECD: 07/06/19 STATUS: COMP _ SOURCE: URINE SPDESC: ORDERED: Urine Culture COMMENTS: [id number] Urine Source: Random Procedure Result Reported Site Urine Culture Final 07/08/19- 09 ML Organism 1 KLEBSIELLA PNEUMONIAE Moffett Count >100,000 (Many) CFU/ML 1. KLEBSIELLA PNEUMONIAE [...] for any additional antibiotic reporting. * - [facility] . END OF REPORT DEPARTMENT OF PATHOLOGY, [address] [place] [address] Rashawn Gonzalez M.D. 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, bilateral R63.4 Abnormal weight loss Office Visit 08/25/2019 4:30p [facility] Main Lawrence Johnson MD R50.9 Fever, unspecified R05 Cough C53.9 Malignant neoplasm of cervix uteri, unspecified Office Visit 07/24/2019 3:00p [facility] Main Lawrence Johnson MD J04.0 Acute laryngitis C53.9 Malignant neoplasm of cervix uteri, unspecified Office Visit 07/06/2019 2:00p [facility] Main Fabiola Davenport, TECHNICAL ACCOUNT 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 R35.0 Frequency of micturition N39.0 Urinary tract infection, site not specified Office Visit 06/21/2019 9:45a [facility] Main Zoie Rivas, C53.9 Malignant neoplasm DO of cervix uteri, unspecified K59.00 Constipation, unspecified L76.32 Postproc hematoma of skin, subcu following other procedure Assessments Date Code Description Provider 12/01/2019 J06.9 Acute upper respiratory infection, Rhona [...] 07/06/2019 R35.0 Frequency of micturition Fabiola Davenport, [facility] 07/06/2019 N39.0 Urinary tract infection, site not specified Fabiola Davenport, TECHNICAL ACCOUNT 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 06/21/2019 C53.9 Malignant neoplasm of cervix uteri, Zoie Arielw, DO unspecified 06/21/2019 K59.00 Constipation, unspecified Zoie Arielw, DO 06/21/2019 L76.32 Postprocedural hematoma of skin and Zoie Karnow, DO subcutaneous tissue following other procedure Plan of Treatment 12/01/2019 - Rhona Whitehead MDJ06.9 Acute upper respiratory infection, qiuhxdyxadyU93.722 Acquired absence of ovaries, aoiweatbxE97.4 Abnormal weight lossAllNew Medication:No Active Medications - Functional Status Description No Information Available Mental Status Description No Information Available Referrals Description No Information Available
--- OUTSIDE RECORDS SUMMARY | 2020-02-02 20:03 | XMS REPORT | Continuity of Care Document ---
:1980 External Reference #:[id number] Author Name Ghada Amor N.P. 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 09/27/2019 - Unknown 1mg Tablets day Progesterone Micronized 1 by mouth every 30caps Ghada Amor N.P. 2018 - Unknown day 100mg Capsules [...] Mass Index) 20.6 kg/m2 Results Test Acquired Facility Test Result H/L Range Note Date Laboratory test 01/24/2020 [facility] TSH (Thyroid 2.01 Normal 0.34-5.[address] Stim Horm) mcIU/mL 0 [place], [place] [id number] [phone] Testosterone 01/24/2020 [facility] Free 0.12 0.06-1.0 1 Free & Total [address] Testosterone ng/dL 0 [place] [address] ng/dl [phone] Testosterone 12 ng/dL 8-60 2 Laboratory test 09/27/2019 [facility] Gardnerella/Yeast: SEE RESULT [address] [place] [address] [phone] 1 ADDITIONAL INFORMATION Testing performed by [facility]. This test was developed and its performance characteristics determined by [facility] in a manner consistent with CLIA requirements. This test has not been cleared or approved by the U.S. Food and Drug Administration. 2 ADDITIONAL INFORMATION Testing performed by Liquid Chromat[facility]-Tandem Mass Spectrometry (LC-MS/MS). This test was developed and its performance characteristics determined by [facility] in a manner consistent with CLIA requirements. This test has not been cleared or approved by the U.S. Food and Drug Administration. Test Performed by: [facility] [address] [place] [address] Visual Basic Programmer: Hiren Moody M.D. Ph.D.; CLIA# [id number] 3 SEE RESULT BELOW Name: BORIS ORTIZ : [address]: Ghada Amor NP Acct: [id number] Unit: [id number] AGE: 39 Location: [facility] Re09/27/19 SEX: F Status: REG REF SPEC: [id number] LEILA: 09/27/19-[address]: Ghada Amor NP REQ: [id number] RECD: 09/27/19 STATUS: COMP _ SOURCE: VAGINAL SPDESC: ORDERED: Freddie,Yeast DNA COMMENTS: [id number] Would you like to order Trichomonas Vaginalis [...] . END OF REPORT DEPARTMENT OF PATHOLOGY, [address] [place] [address] Rashawn Gonzalez M.D. Director [facility] # [id number] Procedures Description No Information Available Medical Devices Description No Information Available Encounters Type Date Location Provider Dx Diagnosis Office Visit 01/24/2020 [facility] Ghada Amor N.P. 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 chronic vaginitis Office Visit 09/27/2019 11:40a [facility] Ghada Amor, E28.310 [facility]omatic [facility] [address] N.P. premature menopause N76.0 Acute vaginitis Z85.41 Personal history of malignant neoplasm of cervix uteri Z92.21 Personal history of antineoplastic chemotherapy Z92.3 Personal history of irradiation Assessments Date Code Description Provider 01/24/2020 R68.82 Decreased libido Ghada Amor N.P. 01/24/2020 R63.4 Abnormal weight loss Ghada Amor N.P. 01/24/2020 E28.310 Symptomatic premature menopause Francisco Abbasi.PLupillo 01/16/2020 E28.310 Symptomatic premature menopause Rachelle JacobPenelope aiken 01/16/2020 Z85.41 Personal history of malignant neoplasm of Rachelle JamesJODEE-Ivette cervix uteri 10/17/2019 E28.310 Symptomatic premature menopause Francisco Abbasi.PLupillo 10/17/2019 Z85.41 Personal history of malignant neoplasm of Ghada Amor N.PLupillo cervix uteri 10/17/2019 Z92.21 Personal history of antineoplastic Ghada Amor N.PLupillo chemotherapy 10/17/2019 Z92.3 Personal history of irradiation Francisco Abbasi.P. 09/29/2019 N76.1 Subacute and chronic vaginitis Ghada Amor N.P. 09/27/2019 E28.310 Symptomatic premature menopause Ghada Amor N.P. 09/27/2019 N76.0 Acute vaginitis Ghada Amor N.P. 09/27/2019 Z85.41 Personal history of malignant neoplasm of Ghada Amor N.P. cervix uteri 09/27/2019 Z92.21 Personal history of antineoplastic Ghada Amor N.PLupillo chemotherapy 09/27/2019 Z92.3 Personal history of irradiation Francisco Abbasi.Abiodun Plan of Treatment Future Appointment(s):02/01/2020 9:00 am - Ghada Amor N.P. at [facility] [address]/24/2020 - Ghada Amor N.P.R68.82 Decreased libidoComments: Spontaneous & Responsive Desire: The female sexual response cycle is now understood to include two styles of sexual desire. In some cases, desire feels spontaneous and seems to arise unconsciously or innately. Alternatively, women may have other motivations to engage in sexual play, such as to increase emotional closeness or intimacy, relieve tension, or experience pleasure. In this case, the woman begins with no sexual desire per se (a state of neutrality) , but is accepting of partner advances or moves towards sexual stimulation for any number of reasons. If sexual stimulation is pleasurable, sufficient time is available, and she is able to stay focused on these sensations, she then becomes sexually aroused and desirous of further play. This second type of desire is called responsive desire and is considered to be a common and healthy way that women engage sexually with their partners. We reviewed the Dual Control Model. The dual control model describes the brain's sexual response mechanism. This mechanism consists of two components, called sexual excitatory and sexual inhibitory systems. These can be thought of as a sexual accelerator and a sexual brake, where the accelerator "turns you on" to sexual stimuli and the brake "turns you off" in response to all the good reasons to not have sex. Each person varies in how sensitive their accelerators and brakes are and what things trigger the "turn on" and "turn off" response. In order to become sexually excited, not only must the accelerator be engaged but, often more importantly, the brakes must be disengaged. Brakes react to acute threats - "the kids just walked in the room!"- and to chronic, low level stimuli - "I don' t like my body. I am frustrated with my partner. I don't feel loved or accepted by my partner. I don't trust my partner. I am stressed and tired. I' m worried about not becoming aroused or having an orgasm." For many women, at least one component of not being unable to become sexually desirous or aroused is an imbalance between accelerators and brakes, usually related to overly engaged brakes but also related to not receiving enough of the right sexual stimuli. One important strategy for increasingdesire is to figure out what triggers the brake and what it would take to disengage it. We reviewed the potential use of testosterone for support of low sexual desire. We reviewed the risks of testosterone use including but not limited to hirsutism and hair loss. There is no clear evidence to support a significant effect on cardiovascular risk or breast cancer risk. However, the data available on this topic is limited. According to a 2010 [place] review, "There is good evidence that adding testosterone to hormone therapy (HT) has a beneficial effect on sexual function in postmenopausal women." In addition the International Consultation of Sexual Medicine's guideline from 2016 states, "Available data support an important role of androgens in female sexual function and dysfunction and efficacy of transdermal T therapy for the treatment of some women with female sexual dysfunction." Plan tocheck your testosterone level now. I have suggested several books for you to consider reading as well.R63.4 Abnormal weight lossComments:Plan to check thyroid hormone mrbqkhG76.310 Symptomatic premature menopauseComments:Continue estradiol patch Functional Status Description No Information Available Mental Status Description No Information Available Referrals Refer to Reason for Referral Status Appt Date [facility] Physical Therapy S/p radiation for cervical cancer [address] [id number] [phone]
[2020-02-02 20:11] VITALS: BP 123/76
--- NOTE | 2020-02-02 20:23 | UC ---
Complaint Female HPI - HPI Summary HPI Summary: For couple weeks she has had some rectal itching and perhaps similarly discharge. Neither of these 2 things are particularly unusual but today she looked and felt that she saw a purplish polyp. She has a complicated history with cervical cancer involving a recurrence and chemotherapy as well as radiation to the area. That was about 3 or 4 months ago - History Of Current Complaint Chief Complaint: UCGU Stated Complaint: SOFT TISSUE Time Seen by Provider: 02/02/20 20:05 Hx Obtained From: Patient ?: No Onset/Duration: Gradual Onset, Lasting Weeks Timing: Constant Severity Initially: Mild Severity Currently: Mild Pain Intensity: 0 Character: Not Applicable - Itching Aggravating Factor(s): Nothing Alleviating Factor(s): Nothing Associated Signs And Symptoms: Positive: Negative - Allergies/Home Medications Allergies/Adverse Reactions: Allergies Allergy/AdvReac Type Severity Reaction Status Date / Time amoxicillin [From Augmentin] Allergy Hives Verified 02/02/20 20:12 clavulanic acid Allergy Hives Verified 02/02/20 20:12 [From Augmentin] latex Allergy RED & Verified 02/02/20 20:12 SWELLING - IN AREA OF USE lorazepam Allergy Hallucinati Verified 02/02/20 20:12 ons Home Medications: Home Medications Estrogens, Conjugated [Premarin] 0.9 mg PO DAILY 02/02/20 [History Confirmed ] PMH/Surg Hx/FS Hx/Imm Hx - Additional Past Medical History Additional PMH: Cervical cancer - Surgical History Surgical History: None - Family History Known Family History: Positive: Non-Contributory - Social History Alcohol Use: Rare Substance Use Type: None Smoking Status (MU): Never Smoked Tobacco Review of Systems All Other Systems Reviewed And Are Negative: Yes Constitutional: Positive: Negative Skin: Positive: Negative - And denied Gastrointestinal: Positive: Other - As above Genitourinary: Positive: Negative Physical Exam - Summary Physical Exam Summary: She is nontoxic in appearance with stable vitals Triage Information Reviewed: Yes Appearance: Well-Appearing, No Pain Distress Vital Signs: Initial Vital Signs Temp 99.7 F 02/02/20 20:06 Pulse 96 02/02/20 20:06 Resp 21 02/02/20 20:06 BP 123/76 02/02/20 20:06 Pulse Ox 100 02/02/20 20:06 Vital Signs Reviewed: Yes ENT Exam: Normal Respiratory: Positive: Chest non-tender Cardiovascular Exam: Normal Abdominal Exam: Normal - I do not perceive any mass on external rectal exam or palpate 1 with my finger. Bowel Sounds: Positive: Present Complaint Female Dx - Course Course Of Treatment: I think most likely her symptoms are from her previous radiation however I recommended she follow up with her PCP for further evaluation. - Differential Dx/Diagnosis Provider Diagnosis: Rectal itching Discharge ED - Sign-Out/Discharge Documenting (check all that apply): Patient Departure All imaging exams completed and their final reports reviewed: No Studies - Discharge Plan Condition: Stable Disposition: HOME Patient Education Materials: Rectal Pain (ED) Referrals: Zoie Rivas DO [Primary Care Provider] - - Billing Disposition and Condition Condition: STABLE Disposition: Home
== END 2020-02-02 20:30 | disposition home or self-care (01) ==
LOC: UCEAST 19:54
DX: L29.0 Pruritus ani (principal); C53.9 Malignant neoplasm of cervix uteri, unspecified; Z88.0 Allergy status to penicillin; Z88.8 Allergy status to other drugs, medicaments and biological substances; Z88.1 Allergy status to other antibiotic agents; Z91.040 Latex allergy status
CPT/HCPCS: 99202; G0463

== ENCOUNTER 2021-03-20 09:42 | Inpatient (IN) ==
[2021-03-20 10:39] LABS: Urine Appearance Cloudy; Urine Bilirubin Negative (Negative); Urine Blood Negative (Negative); Urine Color Yellow; Urine Glucose Negative (Negative); Urine Ketones 2+ (Negative); Urine Nitrite Negative (Negative); Urine Protein Negative (Negative); Urine Specific Gravity 1.016 (1.002-1.030); Urine Urobilinogen Negative (Negative)
[2021-03-20 10:44] LABS: Urine Bacteria Absent (Absent); Urine Red Blood Cell 1+(3-5/hpf) (Absent); Urine Squamous Epithelial Cell Present (Absent); Urine White Blood Cell 1+(6-10/hpf) (Absent)
[2021-03-20 11:10] LABS: ABS Lymphocytes 0.7 10^3/ul (1.0-4.8); ABS Monocytes 0.3 10^3/ul (0-0.8); ABS Neutrophils 4.1 10^3/ul (1.5-7.7); Eosinophil % 0.4 %; Hematocrit 38 % (35-47); Lymphocyte % 13.1 %; Mean Corpuscular HGB Conc 34 g/dL (31-36); Mean Corpuscular Hemoglobin 31 pg (27-31); Mean Corpuscular Volume 92 fL (80-97); Mean Platelet Volume 6.8 fL (7.4-10.4); Platelet Count 245 10^3/uL (150-450); Red Blood Count 4.19 10^6 /uL (3.70-4.87); Red Cell Distribution Width 14 % (10-15); White Blood Count 5.2 10^3/uL (3.5-10.8)
[2021-03-20 11:11] LABS: Urine Benzodiazepine Screen None Detected (None Detect); Urine Cannabinoids Screen Presumptive Positive (None Detect); Urine Opiates Screen None Detected (None Detect)
[2021-03-20 11:38] LABS: ALT 45 U/L (7-52); AST 27 U/L (13-39); Albumin 4.5 g/dL (3.2-5.2); Albumin/Globulin Ratio 1.8 (1-3); Alkaline Phosphatase 38 U/L (35-149); Anion Gap 8 mmol/L (2-11); Blood Urea Nitrogen 7 mg/dL (6-24); CO2 Carbon Dioxide 26 mmol/L (22-32); Calcium 9.7 mg/dL (8.6-10.3); Chloride 105 mmol/L (101-111); EGFR African American 93.1 (>60); EGFR Non-African American 76.9 (>60); Globulin 2.5 g/dL (2-4); Glucose 88 mg/dL (70-100); Potassium 3.9 mmol/L (3.5-5.0); Sodium 139 mmol/L (135-145)
[2021-03-20 12:07] LABS: Acetaminophen < 15 mcg/mL; Alcohol, S < 10 mg/dL (<10); Salicylate < 2.50 mg/dL (<30)
[2021-03-20 12:20] LABS: TSH Ultra Thyroid Stim Horm 0.96 mcIU/mL (0.34-5.60)
[2021-03-20] MEDS ORDERED: Al Hydrox/Mg Hydrox/Simet LIQ 30 ML UDC PO PRN (14:53)
[2021-03-20] MEDS: CMCS: Estradiol 1 mg TAB (NF) PO SCH (22:14)
[2021-03-21] MEDS: CMCS: Estradiol 1 mg TAB (NF) PO SCH (07:34)
[2021-03-21 08:25] LABS: HDL Cholesterol 79.2 mg/dL
[2021-03-22] MEDS: CMCS: Estradiol 1 mg TAB (NF) PO SCH (08:23)
[2021-03-23] MEDS: CMCS: Estradiol 1 mg TAB (NF) PO SCH (08:58)
[2021-03-24] MEDS: CMCS: Estradiol 1 mg TAB (NF) PO SCH (09:11)
[2021-03-25] MEDS: CMCS: Estradiol 1 mg TAB (NF) PO SCH (07:46)
[2021-03-25 08:23] LABS: Lithium 0.64 mmol/L (0.6-1.2)
[2021-03-26] MEDS: CMCS: Estradiol 1 mg TAB (NF) PO SCH (08:48)
[2021-03-26 12:54] LABS: Magnesium 1.9 mg/dL (1.9-2.7)
[2021-03-27] MEDS: CMCS: Estradiol 1 mg TAB (NF) PO SCH (08:34)
[2021-03-28] MEDS: CMCS: Estradiol 1 mg TAB (NF) PO SCH (08:04)
[2021-03-28 08:27] VITALS: BP 114/53
[2021-03-29] MEDS ORDERED: CMCS: Estradiol 1 mg TAB (NF) PO SCH (09:00)
== END 2021-03-28 12:00 | disposition home or self-care (01) ==
LOC: ED 09:42 → BSU 14:53
PROVIDERS: ADMIT Psychiatry & Neurology Psychiatry; ATTEND Psychiatry & Neurology Psychiatry